=== PATIENT | male | born 1980 | race Caucasian/White ===

== ENCOUNTER 2017-03-26 08:29 | Inpatient (IN) | payer BC ==
[~2017-03-26] VITALS: Ht 188 cm; Wt 85.0 kg
[~2017-03-26 08:29] MED LIST: NORCO 5-325 TA1 EACH PO
--- NOTE | 2017-03-26 12:32 | NUR ---
PATIENT ARRIVES FROM ER TO ROOM 128 INTUBATED. PATIENT HAS A 7.5 MM ETT SECURED AT 22 AT THE LIP. PATIENT IS TACHY WITH HR 165-170. DR. KEYES CALLED TO COME EVAL PATIENT. PROPOFOL INFUSION AT 10 MCG/KG/MIN.
--- NOTE | 2017-03-26 18:19 | NUR ---
I RECEIVED A CALL TO COME FOR THIS PT AT ABOUT 1600. WHEN I ARRIVED THE NURSE GAVE ME A BRIEF ASSESSMENT OF WHAT WAS GOING ON. SHE SAID THE MOTHER HAD BEEN CONTACTED AND THEY WERE WAITING FOR HER TO ARRIVE. WHEN SHE ARRIVED, AFTER SHE TALKED TO PT AND NURSE AND , I OFFERED PRAYER. SHE REFUSED, SAYING SHE IS BUDDIST. DR ECHOLS WAS CALLED TO DO A PROCEDURE ON PT SO I TALKED WITH MOM WHILE THIS WAS BEING DONE. AFTER THE PROCEDURE, PT SEEMED MORE STABLE SO NURSE SAID I COULD LEAVE.
--- NOTE | 2017-03-26 19:15 | NUR ---
SEE MONITOR PRINT OUT SHEET FOR FREQUENT V.S.
--- NOTE | 2017-03-26 19:33 | NUR ---
PROGRESS NOTE FROM [id number] AT APPROX 1300, PT'S BLOOD PRESSURE STARTED DROPPING TO BELOW 100 SBP. PT'S FEVER WAS ALSO NOTED TO BE DROPPING. FEVER AT IT'S PEAK WAS 102.6 PER TEMP PROBE CRUZ. PT CONTINUED TO RECEIVE IV BOLUSES OF NORMAL SALINE. PATIENT ENDED UP RECEIVING 7 L NORMAL SALINE BOLUSES FROM THE TIME HE ARRIVED IN THE ED TO NOW, 1930. INITIAL SEDATION STARTED TO WEAR OFF, PATIENT STARTED TO AWAKEN MORE AND COUGH AND FIGHT THE VENTILATOR. PT'S RR HAS REMAINED VERY ELEVATED, WITH 35-40. SP02 DROPPED DOWN TO LOW THE LOW 70s% ON 100% FI02. PATIENT REMAINED ON LEVOPHED, PROPOFOL, AND IVF. PATIENT RECEIVED A LOADING DOSE OF MEROPENEM. LEVOPHED WAS TITRATED UP, PROPOFOL WAS TITRATED DOWN. PRECEDEX WAS TITRATED DOWN AND EVENTUALLY TURNED OFF. PT'S BLOOD PRESSURES CONTINUED TO DROP, WITH THE LOWEST BP BEING 72/48 (54) AND 69/55 (59) AT 1520. DOPAMINE WAS STARTED FOR A SHORT PERIOD OF TIME AND THEN TURNED OFF AT 1545 WHEN VASOPRESSIN WAS ADDED. PT HAS REMAINED ON VASOPRESSIN AT 0.3 UNITS/MIN. AT 1610, PT'S SP02 CONTINUED TO DROP IN THE 70-80s%, AND PATIENT WAS MANUALLY BAGGED FOR A APPROX 10-15 MINUTES. PATIENT WAS ALSO PROFUSELY SWEATING AT THIS TIME. DR. KEYES WAS ABLE TO CONTACT PATIENT'S MOTHER, ANTONIO, AROUND 1615. PT'S MOTHER ARRIVED AROUND 1645. PASTORAL CARE WAS ALSO CALLED AND ASKED TO ASSIST WITH THIS PATIENT'S FAMILY. AT 1650, DR. ECHOLS ARRIVED AND PREPPED PATIENT FOR A CENTRAL LINE. PT'S MOTHER SIGNED THE CONSENT FORM. A LEFT TRIPLE LUMEN IJ WAS ESTABLISHED AND A REPEAT CHEST XRAY WAS OBTAINED. PT ALSO HAS AN OG TUBE THAT WAS PLACED WITHOUT DIFFICULTY AROUND 1330. PT HAS HAD GREEN BILE LIKE FLUID BEING SUCTIONED FROM THIS TUBE. THUS FAR, PATIENT HAS ONLY HAD MINIMAL SECRETIONS, BUT WHAT SECRETIONS WE HAVE SEEN ARE PINK TINGED. AT THIS TIME, PATIENT HAS LEVOPHED INFUSING AT 25 MCG/MIN, PROPOFOL AT 40 MCG/KG/MIN, VASOPRESSIN AT 0.3 UNITS/HR, NORMAL SALINE AT 250 ML/HR, NS WITH 1 AMP OF SODIUM BICARB AT 125 ML/HR. PATIENT HAS FOUR PERIPHERAL IV SITES. BLOOD CULTURES WERE DRAWN IN ER. SPUTUM CULTURE TO BE OBTAINED. PATIENT HAS BEEN GIVEN PRN DOSES OF VERSED, 5 MG, TO HELP KEEP PATIENT CALM AND TOLERATE THE VENTILATOR. WRIST RESTAINTS ARE IN PLACE AND BEING MONITORED CLOSELY. URINE OUTPUT HAS BEEN MINIMAL. AT 1845, URINE CRUZ BAG WAS EMPTIED FOR 225 ML OF CONCENTRATED URINE. PT HAD 475 PREVIOUSLY EMPTIED OUT OF BAG AROUND 1400. PT HAS REMAINED IN A SINUS TACH WITH OCCASIONAL PVCs. REPEAT MAG LEVEL WAS 1.7. REPORT GIVEN TO DAVEY HUGGINS.
--- NOTE | 2017-03-26 20:26 | NUR ---
DOES NOT OPEN EYES TO VOICE BUT IS TACHYPNEAC AND WILL OCC COUGH AND RAISE ARMS A LITTLE. MOM HAS BEEN AT BEDSIDE IS NOW HOME TO CARE FOR SELF AND STATES SHE WILL BE BACK. LAB DRAWN. ABG'S DRAWN. WILL CONT TO MONITOR VS AND URINE OUTPUT.
--- NOTE | 2017-03-26 22:15 | NUR ---
Van ROSARIO SUPERVISOR LAMP SHADES ATTEMPTING TO INSERT ART LINE. PT WAS GIVEN MORPHINE 4MG IV FOR DISCOMFORT. VASOPRESSIN TITRATED TO 4MCG FOR HYPOTENSION. DR KEYES IN DEPT WHEN RECIEVED REPORT OF CRITICAL LOW CALCIUM AND ORDER RECIEVED.
--- NOTE | 2017-03-26 23:06 | NUR ---
ART LINE IN LT FEMORAL SITE. ABG WAS SENT. PT TILTED TO L SIDE.
--- NOTE | 2017-03-26 23:15 | NUR ---
DR KEYES NOTIFIED OF ABG'S AND LOW URINE OUTPUT. WILL GET CVP.
--- NOTE | 2017-03-27 00:01 | NUR ---
ATTEMPTED TO OBTAIN SPUTUM SMAPLE VIA ETT, UNABLE TO OBTAIN A SUFFICIANT AMOUNT OF SPUTUM TO SEND A SAMPLE, EVEN ATTEMPTED TO LAVAGE PT AND WAS UNABLE TO GET ANY SPUTUM UP, WILL ATTEMPT AGAIN AT A LATER TIME, PT MIGHT BENEFIT FROM A BRONCHOSCOPY IF UNABLE TO OBTAIN SPUTUM
--- NOTE | 2017-03-27 00:30 | NUR ---
IS LESS DIAPHORETIC THAN EARLIER. MOM CONT AT BEDSIDE.
--- NOTE | 2017-03-27 02:05 | NUR ---
GIVEN CHLORHEXADIN WIPE DOWN AND LINEN CHANGED. RR INC DURING THIS. MORE AWAKE AND DID TRY TO FOLLOW SOME COMMANDS. GIVEN 5MG VERSED FOR SEDATION AND INC RR, AND COMFORT. MOTHER OF PT TOLD US THAT PT HAD TOLD HER ABOUT BEING ON MEDICINE FOR AN STD BUT THAT HE HAD QUIT TAKING IT. SHE DOES NOT KNOW THE TYPE OF STD OR KIND OF MEDICATION. WILL INFORM DR IN AM.
--- NOTE | 2017-03-27 03:20 | NUR ---
GRDADUALLY TITRATING LEVOPHED AND VASOPRESSIN. DOWN.
--- NOTE | 2017-03-27 04:31 | NUR ---
PT BECAME AGITATED AFTER BEING TURNED, GIVEN 4MG MORPHINE AND PT DID CALM SOME, STILL TENSE, GIVEN 5MG VERSED IV. MORE RELAXED NOW.
--- NOTE | 2017-03-27 06:14 | NUR ---
LABS DRAWN PER ART LINE. PT REPOSITIONED AND MARYCARMEN WELL. CONT TO BE COOL AND CLAMMY FRANK EXTREMITIES.
--- NOTE | 2017-03-27 06:28 | OR ---
[facility] [address], [place] [address] Signed DATE OF OPERATION: 03/26/2017 SURGEON: Mauricio Castro M.D. PREOPERATIVE DIAGNOSES: 1. Sepsis. 2. Pneumonia. 3. Alcohol withdrawal. POSTOPERATIVE DIAGNOSES: 1. Sepsis. 2. Pneumonia. 3. Alcohol withdrawal. PROCEDURES: 1. Placement of left internal jugular triple-lumen catheter. 2. Physician-directed ultrasound. ESTIMATED BLOOD LOSS: Minimal. INDICATIONS: Jose is a 36-year-old gentleman who has been admitted to the internal medicine service to our emergency room. He was found to have what looks like left-sided pneumonia and alcohol withdrawal. He is clearly septic. He has excellent peripheral IV access, but he has been on pressors all day, and he is intubated. He is clearly in need of ongoing ICU care. Consequently, I was asked by the internal medicine service to come and place a triple-lumen catheter for sreekanth with respect to the above. Of course, he is sedated, but fortunately his mother was here, we had a discussion regarding triple-lumen running central venous catheters. She understands the nature of the catheter along with the risks, including but not limited to, bleeding, infection, scarring, change in contour of the skin, pneumothorax requiring chest tube placement, as well as catheter embolization requiring retrieval. She had expressed understanding and wished to proceed. DESCRIPTION OF PROCEDURE: Jose was kept supine in his ICU bed with adequate sedation with the help of Versed. His left neck and chest wall were prepped and draped in the usual sterile fashion. We injected local anesthetic in the left chest wall and underneath the left clavicle. I accessed the left subclavian vein with the first pass of the needle and the wire was inserted, but it was catching once it was entering the subclavian vein. We were not sure if it was catching on the internal jugular vein where it joins the subclavian vein. We withdrew the wire, turned the wire over, so a J hook was facing the opposite Electronically Signed By: MAURICIO CASTRO MD 03/27/17 0628 PATIENT NAME: JOSE GARZA OPERATIVE REPORT DATE OF : 76 PHYSICIAN: MAURICIO CASTRO MD REPORT #: [id number] REPORT IS CONFIDENTIAL AND NOT TO BE RELEASED WITHOUT AUTHORIZATION [facility] [address], [place] [address] Signed direction and refitted the wire and again it would not pass. Consequently, we took the wire and the needle out. We re-accessed the subclavian vein on 2 passes of the needle and again the wire would proceed to the length of the needle, but once again at the subclavian vein, it would not pass. Consequently, we abandoned the left subclavian approach. After this, we brought out our ultrasound and we put on the ultrasound cover sterilely and we injected some local anesthetic over his left carotid artery. We used the ultrasound and found the artery and the internal jugular vein next to it. We accessed the artery initially with a finder needle, so we held pressure for 5 minutes. After that, we then accessed the internal jugular vein with a finder needle. We then switched out to our larger needle and we were able to access the internal jugular vein without difficulty. On this occasion, the wire fed quite nicely down and then towards the superior vena cava. We then dilated the track without any resistance whatsoever. The triple-lumen catheter was inserted over the wire and again there was no resistance whatsoever to passage of the triple-lumen catheter. All 3 ports were able to draw and flush quite readily. We then sutured the catheter in place on the neck and then at 3 points on the catheter hub on the chest wall just over the clavicle. Dry plastic occlusive dressing was then applied. Both tolerated the procedure quite well. The chest x-ray was then taken and we can see it is in good position. There was no evidence of pneumothorax. We can see the increased markings in his left lung consistent with his pneumonia. Mauricio Castro M.D. / [id number] P P Electronically Signed By: MAURICIO CASTRO MD 03/27/17 0628 PATIENT NAME: JOSE GARZA OPERATIVE REPORT DATE OF : 76 PHYSICIAN: MAURICIO CASTRO MD REPORT #: [id number] REPORT IS CONFIDENTIAL AND NOT TO BE RELEASED WITHOUT AUTHORIZATION
--- NOTE | 2017-03-27 07:10 | EKG ---
[facility] [address] [facility] [place], [place] [address] Signed Sinus tachycardia Otherwise normal ECG No previous ECGs available Confirmed by POP KEYES MD ([id number]) on 03/27/2017 7:09:55 AM Electronically Signed By: POP KEYES MD 03/27/17 0710 PATIENT NAME: JOSE GAZRA Electrocardiogram DATE OF : 76 PHYSICIAN: POP KEYES MD REPORT #: [id number] REPORT IS CONFIDENTIAL AND NOT TO BE RELEASED WITHOUT AUTHORIZATION
--- NOTE | 2017-03-27 07:15 | NUR ---
bedside report recieved. REMAINS ON VENT. ART LINE TO L FEMEROL ART NO FUNCTIONAL. WILL TROUBLE SHOOT THIS LATER. DR. KEYES AWARE . LEVOPHED GTT REMAINS AT 2OMCG/MIN, VASOPRESSIN 0.3 MCG/MIN. SEE MONITOR PRINT OUT FOR FREQUENT V.S. CRUZ CATH/OG PATENT. FEET/HAND COOL TO TOUCH.
--- NOTE | 2017-03-27 07:22 | NUR ---
CHEST XRAY DONE. PT AGITATED AND GIVEN 5MG VERSED IV. ART WAVEFORM DAMPENED AFTERWARD, FLUSHES WELL. REPORT TO DAY SHIFT.
--- NOTE | 2017-03-27 10:40 | NUR ---
Gayle PABON HERE TO PLACE ART LINE
--- NOTE | 2017-03-27 10:59 | NUR ---
MED REC COMPLETE. PATIENT TAKES NO HOME MEDICATIONS
--- NOTE | 2017-03-27 11:05 | NUR ---
ART LINE PLACED TO LEFT RADIAL ART. GOOD WAVE FORM/GOOD BLOOD RETURN. NO CHANGE IN HAND TEMP. HANDS/FEET COLD TO TOUCH.
--- NOTE | 2017-03-27 11:10 | NUR ---
ART LINE TO LEFT FEMEROL ART DC'D.
--- NOTE | 2017-03-27 11:45 | NUR ---
ABG RESULTS PH-7.32, PCO2-35.7, PO2-107, HCO3-17.7. K+-3.3, AST-888, ALT-287. DR. KEYES UPDATED ON LABS.
--- NOTE | 2017-03-27 12:01 | NUR ---
LABS DRAWN VIA ART LINE PER ORDERS. SPONGE BATH/ORAL CARE GIVEN. IC CALM ON DIPRAVAN GTT AT 5OMCG/KG/MIN. VASOPRESSIN OFF AT 1125, BP-124/75 VIA ART LINE.
--- NOTE | 2017-03-27 12:28 | NUR ---
FIO2 DECREASED TO 50%. PO2 VIA ABG-107, PH-7.32. LEVOPHED GTT DECREASED TO 17.5 MCG/MIN. BP-120/80. HAS EYES OPEN AT TIMES.
--- NOTE | 2017-03-27 12:40 | NUR ---
REMAINS ON DIPRAVAN GTT AT 50MCG/MIN.
--- NOTE | 2017-03-27 13:43 | NUR ---
VISITED WITH JANE FERNANDEZ. PT SWEATING PROFUSLY, ON VENT. NO FAMILY PRESENT, HOWEVER HIS MOTHER DID STAY THE NIGHT. PRAYED FOR PT AND STAFF
--- NOTE | 2017-03-27 15:17 | NUR ---
DR. KEYES UPDATED ON PATIENT CONDITION. ORDERS RECIEVED TO REPEAT CALCIUM GLUCONATE.
--- NOTE | 2017-03-27 15:30 | NUR ---
CALM. NO MORPHINE HAS BEEN GIVEN SO FAR TODAY. HAS HAD VERSED X 3 TODAY.
--- NOTE | 2017-03-27 16:07 | NUR ---
ASSESSMENT DONE. FAMILY/FRIEND AT BEDSIDE. REMAINS ON LEVOPHED GTT AT 17.5 MG/MIN. DIPRAVAN AT 50 MCG/KG/MIN. IVF AT 125 ML/HR. K RIDER 40 MEQ HAS INFUSED. CALCIUM GLUCATATE INFUSING. CRUZ CATH IS PATENT. MEDICATED WITH VERSED 4 MG IV IS RESTLESS. CRUZ CATH PATENT.
--- NOTE | 2017-03-27 17:00 | NUR ---
morphine 4 MG IV GIVEN FOR COMFORT.
--- NOTE | 2017-03-27 17:50 | NUR ---
DR. KEYES HERE TO SEE PATIENT. VENT SETTINGS, TV-500, FIO2-50, CMV-20,PEEP-8, PIP-20.
--- NOTE | 2017-03-27 17:54 | NUR ---
TOTAL IVF [id number]
--- NOTE | 2017-03-27 19:02 | NUR ---
VERSED 4 MG IV GIVEN. REPORT TO NEXT SHIFT.
--- NOTE | 2017-03-27 20:10 | NUR ---
REPORT RECIEVED FROM DAY SHIFT. PT IS EASILY AROUSABLE, WILL PULL AT RESTRAINTS AND DID RESIST ORAL CARE. GIVEN 4MG MOMRPHINE IV FOR COMFORT. IS DIAPHORETIC BUT COLOR IS SL IMPROVED FROM LAST NIGHT.
--- NOTE | 2017-03-27 21:30 | NUR ---
REPOSITIONED. PT COUGHING AND RR INC. GIVEN 4MG VERSED FOR RELAXATION.
--- NOTE | 2017-03-27 23:15 | NUR ---
RT IN TO DO ORAL CARE. SUCTIONED FOR LARGE AMT PINK SPUTUM. PT DID GRASP HAND ON REQUEST. CONT TO COUGH AND APPEAR UNCOMFORTABLE, GIVEN 4MG MORPHINE. IS LESS DIAPHORETIC. EXTREMETIES MUCH WARMER THOUGH R FOOT IS COOLER THAN L AND PULSE IS WEAKER.
--- NOTE | 2017-03-28 00:56 | NUR ---
REPOSITIONED. MARYCARMEN WELL. RESTFUL.
--- NOTE | 2017-03-28 01:17 | NUR ---
PT UP TO COMMODE AND BATHROOM THREE DIFFERENT TIMES IN THE LAST 30 MIN. PT ABLE TO STATE "CAN I PLEASE USE THE RESTROOM" AND "CAN I HAVE SOME MORE BLANKETS?". PT HAVING DIFFICULTY GETTING COMFORTABLE IN BED. DIRECTOR OF INCOME TAX TAKEN OFF FOR PT COMFORT, WILL SPOT CHECK, VITALS WNL. PT TEARFUL AT TIMES, AND STATES "I HATE THIS".
--- NOTE | 2017-03-28 02:20 | NUR ---
REPOSITIONED TO SIDE. MORE AWAKE AND TRYING TO MOVE ETT AROUND IN MOUTH IF FINDS IT UNCOMFORTABLE. GIVEN 4MG VERSED IV. CONT TO TITRATE LEVOPHED, IS NOW 13MCG/MIN.
--- NOTE | 2017-03-28 02:49 | NUR ---
CONT TO BE TENSE. GIVEN 4MG MORPHINE IV.
--- NOTE | 2017-03-28 04:07 | NUR ---
AWAKENED WHEN ORAL CARE DONE PER RT. PT ATFIRST CALMED WITH NURSE HOLDING HAND, BUT BECAME MORE RESTLESS. GIVEN 4MG VERSED IV. REPOSITIONED UP IN BED AND TO BACK. PT NOW MORE RESTFUL. CONT TO TITRATE LEVOPHED DOWN, IS NOW AT 10MCG/KG.
--- NOTE | 2017-03-28 06:07 | NUR ---
ABG'S AND LABS DRAWN PER ART LINE. PT RESTFUL AT THIS TIME. LEVOPHED DEC TO 9MCG/KG. UPDATE GIVEN TO PT'S MOTHER PER PHONE.
--- NOTE | 2017-03-28 06:30 | NUR ---
VERSED 4MG IV GIVEN PRIOR TO CXR BEING DONE. PT MARYCARMEN WELL.
--- NOTE | 2017-03-28 07:35 | NUR ---
BEDSIDE REPORT RECEIVED FROM JANE SMART. PATIENT RESTING AT THIS TIME ON VENTILATOR AND BREATHING ALONG WITH VENTILATOR. PT IS ON 50 MCG/KG/MIN OF PROPOFOL, LEVOPHED AT 9 MCG/MIN, MEROPENEM AT 33 ML/HR, AND NORMAL SALINE AT 156 ML/HR, FOR A TOTAL OF 250 ML/HR OF IVF PER DR. KEYES ORDER. PATIENT HAS OG TUBE THAT IS TO LOW INTERMITTENT SUCTION BUT NOT DRAINING MUCH AT THIS TIME. CENTRAL LINE IN LEFT IJ TRIPLE LUMEN BEING USED. ART LINE IN LEFT WRIST. TEMP PROBE CRUZ DRAINING YELLOW URINE IN QUANTITY SUFFICIENT AMOUNTS. RASS GOAL IS -2 AND PATIENT IS CURRENTLY AT A -2 RASS. SCDS AND HEEL PROTECTORS ON. PT REPOSITIONED TO LEFT SIDE. PT ALSO DEEP SUCTIONED WITH RAJPUT COLORED SECRETIONS EVIDENT IN TUBE. CONTINUE TO MONITOR. LOVENOX BEING D/C DUE TO LOW PLATELETS.
--- NOTE | 2017-03-28 08:04 | NUR ---
PROPOFOL TURNED UP TO 55 MCG/MIN AT THIS TIME. PT ALSO GIVEN 4 MG IV VERSED. PT SITTING UP IN BED AND COUGHING AGAINST TUBE. RASS GOAL IS -2 AND PT CURRENTLY AT A +1. DR. KEYES AT BEDSIDE EVALUATING PATIENT. FULL ASSESSMENT COMPLETE.
--- NOTE | 2017-03-28 08:10 | NUR ---
PATIENT AWAKE WITH EYES OPEN. PT RASS IS AT +1. PT GIVEN 4 MG IV VERSED FOR SEDATION.
--- NOTE | 2017-03-28 10:00 | NUR ---
PATIENT TURNED TO RIGHT SIDE. RT IN ROOM AND RE-ADJUSTING PT'S ETT AND ETT LOPEZ. I/O COMPLETE AT THIS TIME. WRIST RESTRAINTS CHECKED AND CSM INTACT. ART LINE CONTINUES TO SHOW GOOD WAVEFORM. LEVOPHED AT 9 MCG/MIN. PROPOFOL CONTINUES AT 55 MCG/KG/MIN.
--- NOTE | 2017-03-28 10:15 | NUR ---
PATIENT GIVEN 4 MG IV MORPHINE FOR PAIN. PT AWAKE, RESPONDS TO QUESTIONS BY CLOSING EYES TIGHT AND BY RAISING EYE BROWS. PT ACKNOWLEDGES THAT HIS IS IN PAIN. PT ALSO FOLLOWS COMMANDS OF SQUEEZING MY HAND WHEN ASKED. PT NOTED TO BE MOVING ALL FOUR EXTREMTIES. CONTINUE TO MONITOR.
--- NOTE | 2017-03-28 11:00 | NUR ---
PATIENT RESTLESS AND GIVEN 4 MG IV VERSED FOR A RASS OF 0 - +1. PT COUGHING AND NOT TOLERATING VENTILATOR WELL.
--- NOTE | 2017-03-28 11:42 | NUR ---
LEVOPHED TURNED DOWN TO 8 MCG/MIN. PATIENT'S MAP HAS CONSISTENTLY BEEN >70. LAST NIBP WAS 109/78 (85). CONTINUE TO MONITOR.
--- NOTE | 2017-03-28 12:32 | NUR ---
PATIENT GIVEN 4 MG IV MORPHINE FOR GENERALIZED DISCOMFORT. PATIENT SHOWING SIGNS OF BEING UNCOMFORTABLE. PT REPOSITIONED TO HIS BACK WITH PILLOWS UNDERNEATH HIS HIPS. PT'S BED BATH AND LINEN CHANGE TO BE DONE AROUND 1400. CONTINUE TO MONITOR.
--- NOTE | 2017-03-28 15:37 | NUR ---
BEDBATH GIVEN TO PATIENT AT 1430. PT TOLERATED WELL. PT GIVEN 4 MG IV VERSED PRIOR TO CHANGING HIS LINEN. AROUND 1500, PATIENT GIVEN 4 MG IV MORPHINE FOR GENERALIZED DISCOMFORT AFTER BEING TURNED AND DEEP SUCTIONED. PT'S MOTHER NOW AT BEDSIDE AND DR. KEYES IN ROOM SEEING PATIENT. PT'S BOSS, OUSMANE, ALSO HERE TO SEE PATIENT. HEART RATE CURRENTLY 98, SP02 99% ON 50% FI02. PT IS TOLERATING VENTILATOR WELL. URINE OUTPUT HAS REMAINED GOOD. CONTINUE TO MONITOR.
--- NOTE | 2017-03-28 17:00 | NUR ---
RT in room, removes bite block. Fi02 decreased to 35%. Patient resting quietly, RT does oral care and suctions patient. Patient tolerates well. O2 says 93% at this time. After removing bite block RT notes a small ulceration to patient lower lip. Area is the size of a frozen pea.
--- NOTE | 2017-03-28 17:20 | NUR ---
PATIENT GIVEN CYMBALTA THROUGH THE OG TUBE AND TUBE CLAMPED FOR NOW. RT DOING PULMONARY TREATMENT WITH DEEP SUCTIONING. PT'S SKIN FRAGILE ON UPPER AND LOWER LIPS - BACITRACIN APPLIED TO SORE AREAS. LEVOPHED TURNED DOWN TO 7 MCG/MIN. LAST NIBP 126/91 (99). PT GIVEN 4 MG IV VERSED FOR AGITATION AND A RASS OF +1. CONTINUE TO MONITOR.
--- NOTE | 2017-03-28 18:17 | NUR ---
LEVOPHED TURNED DOWN TO 6 MCG/MIN. LAST BP 128/92 (100) NIBP, ART LINE 110/70 (84). PT TURNED TO SUPINE POSITION AT THIS TIME. I/O COMPLETE. RESTRAINTS IN PLACE.
--- NOTE | 2017-03-28 19:05 | NUR ---
RT IN ROOM AND RE-SECURING ETT LOPEZ. PT AWAKE AND COUGHING AND APPEARS AGITATED. PT NODS HEAD YES WHEN ASKED IF HE IS IN PAIN. PT GIVEN 4 MG IV MORPHINE AT THIS TIME. LEVOPHED IS AT 5 MCG/MIN. PROPOFOL IS GOING AT 50 MCG/KG/MIN. REPORT TO DEEP SEA DIVER RNs AT BEDSIDE.
--- NOTE | 2017-03-28 20:05 | NUR ---
PROPOFOL DRIP TURNED UP TO 60 MCG/KG/MIN PER PT AGITATION.
--- NOTE | 2017-03-28 20:44 | NUR ---
PT REPOSITIONED TO LEFT SIDE WITH PILLOW FOR SUPPORT UNDER RT HIP, BOOSTED PT UP IN BED, REPOSITIONED HEAD AND TURNED PILLOW. RESTRAINTS CHECKED FOR PT COMFORT AND SAFETY. PERIFFERAL IV SITES INTACT, NO REDNESS OR SWELLING NOTED, FLUSH EASILY. CENTRAL LINE INTACT, FLUIDS INFUSING EASILY, NO DRAINAGE NOTED. PT VITALS WNL. ORAL CARE AND SUCTIONING DONE BY RT. PT RASS SCORE AT -2. SCD'S AND HEEL PROTECTORS IN PLACE.
--- NOTE | 2017-03-28 21:14 | NUR ---
PROPOFOL DRIP TURNED DOWN TO 55 MCG/KG/MIN.
--- NOTE | 2017-03-28 21:55 | NUR ---
PT GIVEN 4 MG IV MORPINE FOR COMFORT, REPOSITIONED TO BACK, RESTRAINTS CHECKED FOR PT COMFORT AND SAFETY.
--- NOTE | 2017-03-28 22:00 | NUR ---
TITRATED LEVOFED DRIP TO 2 MCG/MIN.
--- NOTE | 2017-03-28 22:15 | NUR ---
MEDICATION CRUSHED AND GIVEN PER TUBE, FLUSHED WITH 100 ML TAP H20, SUCTION TURNED OFF AT THIS TIME.
--- NOTE | 2017-03-28 23:20 | NUR ---
NG TUBE SUCTION TURNED BACK ON.
--- NOTE | 2017-03-28 23:28 | NUR ---
BP CUFF REPLACED ON RT ARM, BANDAGE AND BACITRACIN OINTMENT PLACED ON ABRASION IN RT AC. RESTRAINTS CHECKED FOR PT COMFORT AND SAFETY. NO GRIMACE NOTED, PT HANDS AND ARMS RELAXED.
--- NOTE | 2017-03-29 00:05 | NUR ---
TURNED LEVOFED DRIP OFF.
--- NOTE | 2017-03-29 00:45 | NUR ---
PT REPOSITIONED TO RT SIDE WITH SUPPORT OF PILLOW UNDER LEFT HIP, REPOSITIONED PT HEAD AND TURNED PILLOW. CRUZ CATH CARE DONE, SIGNIFICANT SCROTAL EDEMA NOTED, TENTED SCROTUM UP WITH PILLOW CASE FOR RELIEF. DC'D PERIFERAL IV SITE IN LEFT WRIST DUE TO REDNESS NOTED, TIP OF CATH INTACT, NO SWELLING NOTED. RESTRAINTS CHECKED FOR PT SAFETY AND COMFORT.
--- NOTE | 2017-03-29 04:30 | NUR ---
PT REPOSITIONED TO LEFT SIDE, WITH SUPPORT OF PILLOW UNDER RT HIP. RESTRAINTS CHECKED FOR PT COMFORT AND SAFETY. IV SITES INTACT, FLUSH EASILY, NO REDNESS OR SWELLING NOTED. CENTRAL LINE INTACT, BROWN AND WHITE PORT CONTINUIOUS USE, BLUE PORT HEP LOCKED, NO SWELLING OR DRAINAGE NOTED.
--- NOTE | 2017-03-29 06:09 | NUR ---
PT GIVEN 4 MG IV MORPHINE FOR AGITATION. REPOSITIONED PT TO BACK. RESTRAINTS ASSESSED FOR PT SAFETY AND COMFORT.
--- NOTE | 2017-03-29 06:30 | NUR ---
PT GIVEN 4 MG VERSAID FOR AGITATION.
--- NOTE | 2017-03-29 10:08 | NUR ---
ASSESSMENT COMPLETED AT 0800. PT RESTING ON VENT WITH HOB ELEVATED. R.T. IN AND ORAL CARE COMPLETED, ABG DRAWN FROM ART LINE PER RN AND SENT TO LAB. DR. KEYES IN TO ASSESS PT, NO WEANING PARAMETERS OR EXTUBATION ORDERED FOR TODAY. IVF DECREASED SO THAT THE TOTAL RUNNING BETWEEN 130-150 MLS/HR, PER DR. KEYES. PT GIVEN MORPHINE 2MG AND VERSED 4MG IV D/T MOVING ARMS AND REACHING FOR ETT. PT RESTING WITH EYES CLOSED AFTER MEDS GIVEN. SPONGE BATH GIVEN AND LINEN CHANGED WITH 3 PERSON ASSIST. PT HAD SMALL BROWN BM, SKIN INTACT. R.T. HERE AND NEW TUBING CHANGED FROM EET TO VENT AND SECURED WELL WITH ISABELLA ETT FASTENER AND TUBE CHANGED TO MID/RIGHT OF MOUTH.
--- NOTE | 2017-03-29 11:12 | NUR ---
VENT ALARMING "FI02 HIGH". RT NOTIFIED AND HERE TO CHECK VENT. SATS 94%.
--- NOTE | 2017-03-29 11:34 | NUR ---
RT CHANGED VENT OUT FROM THE DRAGER TO THE ESPRIT WITH SAME VENT SETTINGS: FI02 35%, TV 500, PEEP 8, PS 10.
--- NOTE | 2017-03-29 12:09 | NUR ---
DR. KEYES NOTIFIED OF DECREASE IN URINE OUTPUT. NO NEW ORDERS AT THIS TIME BUT WILL CONTINUE TO MONITOR.
--- NOTE | 2017-03-29 12:25 | NUR ---
ASSESSMENT COMPLETED, MOTHER IN ROOM AND WAS UPDATED ON PLAN OF CARE. MOTHER IS REQUESTING TO VISIT WITH DR. KEYES AT HER CONVIENCE. DR. KEYES NOTIFIED.
--- NOTE | 2017-03-29 12:30 | NUR ---
PT'S MOTHER STOPPED IN OFFICE WHEN SHE NOTICED CHAPLAIN AMY Calderon IN. SHE REQUESTED HE COME DOWN AT HIS CONVIENENCE. HE WAS CALLED IN WHEN PT WAS BROUGHT TO HOSPITAL. MOTHER PROFESSES TO BE [employer], SEEMS COMFORTABLE WITH AMY Calderon. WILL CONTINUE TO FOLLOW
--- NOTE | 2017-03-29 13:08 | NUR ---
I WAS IN THE OFFICE AND THE MOTHER OF PT SAW ME AND ASKED TO SPEAK WITH ME WHEN I HAD TIME. I WENT TO VISIT WITH HER AND SHE TALKED ABOUT PT AND ASKED ABOUT TRYING TO MAKE A CONNECTION WITH HIM WHEN HE IS AWAKE SO THAT I CAN POSSIBLY HELP HIM IN RECOVERY OF ADDICTION. I TOLD HER I WOULD TRY, BUT IT IS DEPENDANT ON HOW RECEPTIVE HE IS. SHE TALKED I UNDERSTOOD HER DESCRIBE SOMEONE WITH NO HOPE, AND I TOLD HER I WOULD OFFER THE HOPE I HAVE IN LIFE AND MAYBE IT WOULD BE ENOUGH TO GET HIM STARTED IN RECOVERY. I WILL TRUST GOD TO OPEN THAT DOOR.
--- NOTE | 2017-03-29 15:14 | NUR ---
I/O'S COMPLETED AT 1400, URINE OUTPUT REMAINS LOW. DR. KEYES NOTIFIED. MOTHER OF PT REMAINS IN ROOM AND DR. KEYES IN TO TALK WITH HER. ORDERS RECEIVED FOR LASIX 20 MG IV FOR DECREASED URINE OUTPUT.
--- NOTE | 2017-03-29 16:23 | NUR ---
25 MINUTES AFTER LASIX GIVEN PT IS RESTLESS, NO URINE IN CATHETER BAG. VERSED 2MG GIVEN IV, UNABLE TO FLUSH CRUZ CATH. URINE LEAKING FROM AROUND CRUZ INSERTION SITE. CRUZ DC'D AND REPLACED. CRUZ DRAINING CLEAR LIGHT YELLOW URINE. 1250 ML EMPTIED FROM CATHETER BAG AND APPROX 300 MLS LEAKED FROM AROUND CATHETER TUBE. VERSED 2MG GIVEN IV FOR A TOTAL OF 4MG. SPONGE BATH GIVEN AND LINEN CHANGED. PT REPOSITIONED IN BED AND TURNED TO LEFT SIDE. RESTING WITH EYES CLOSED.
--- NOTE | 2017-03-29 17:45 | NUR ---
ASSESSMENT COMPLETED. R.T. HERE TO SUCTION PT AND CHECK VENT. PT APPEARS TO BE MORE COMFORTABLE. HOB ELEVATED 35 DEGREES. CRUZ CATH DRAINING CLEAR YELLOW URINE.
--- NOTE | 2017-03-29 17:47 | NUR ---
Pt had alot of secretions , check eet placemnt 22 at teeth , good bilateral bs , rn at bedside oral secretion suctioned moved to tube to the middle of the mouth , check cuff pressure 28-30 , patient was alittle agitaed however rn gave meds and he is settled back down .
--- NOTE | 2017-03-29 20:00 | NUR ---
RECEIVED CARE OF PATIENT. PATIENT LYING QUIETLY IN BED; INTUBATED ON THE VENTILATOR. PATIENT RESPONDS TO VOICE, AND NODS HEAD YES/NO TO QUESTIONS. LUNGS CLEAR. CENTRAL LINE L JUGLAR; IV INFUSING WITHOUT PROBLEMS. CVP LINE IN PLACE WITH GOOD WAVEFORM; CVP 8.
--- NOTE | 2017-03-29 22:00 | NUR ---
PATIENT [id number] TO HAVE A LARGE AMOUNT OF SECRETIONS AND REQUIRES FREQUENT SUCTIONING; BOTH ENDOTRACHEAL AND ORAL. LUNGS COARSE IN MID TO LOWER MENG. HEART RATE REMAINS IN THE LOW 100'S. URINE OUTPUT REMAINS ADEQUATE.
--- NOTE | 2017-03-30 00:05 | NUR ---
PATIENT BECOMES VERY RESTLESS AT TIMES. CONTINUES TO NEED FREQ SUCTIONING. PATIENT NODS HEAD TO QUESTIONS; WHEN ASKED IF HAVING PAIN PATIENT NODS HEAD 'YES'. NO CHANGES IN ASSESSMENT AT THIS TIME.
--- NOTE | 2017-03-30 01:41 | NUR ---
SPOKE WITH MD. UPDATED THAT PT IS REQUIRING 55MCG/KG/MIN OF PROPOFOL AT START OF SHIFT. PT IS NOW AT 60 MCG/KG/MIN. MD IS OKAY WITH INCREASING NEEDED TO KEEP RASS SCORE -2 AND STAYING WITHING MEDICATION PARAMETERS.
--- NOTE | 2017-03-30 07:41 | NUR ---
RECEIVED REPORT FROM HEAD OF QUALITY. PT RESTLESS AND URINE OUTPUT DECREASED, HEAD OF QUALITY FLUSHED CRUZ BUT WITHOUT SUCCESS. CRUZ CHANGED AND LARGE AMOUNT OF SEDIMENT NOTIED AROUND TIP OF CATHETER. CRUZ NOW DRAINING PINK/YELLOW URINE WITH SEDIMENT. PT MEDICATED WITH VERSED 4MG IV FOR RESTLESSNESS. PT RESTING WITH HOB ELEVATED. R.T. HERE TO CHECK VENT SETTINGS, ABG DRAWN FROM ART LINE BY RN AND RT SENT TO LAB.
--- NOTE | 2017-03-30 11:49 | NUR ---
A.M. ASSESSMENT COMPLETED AT 0900. CRUZ DRAINING CLEAR YELLOW URINE. DR. KEYES IN TO ASSESS PT, ORDERS RECEIVED TO FLUSH CRUZ CATHETER FREQUENTLY TO KEEP CLEAR OF SEDIMENT. UA SENT TO LAB. MEDICATED PT NEEDED TO PROTECT ETT AND KEEP PT SAFE. VERSED GTT STARTED AT 3 MG/HR - MAY TITRATE. BED BATH GIVEN AND PT REPOSTIONED IN BED WITH 4 PERSON ASSIST. PT SUCTIONED NEEDED D/T LARGE AMOUNT OF ORAL SECREATIONS. SALINE LOCK X2 DC'D IN RIGHT HAND & RIGHT FOREARM WITH CATH INTACT - PER ROUTINE PROTOCOL. TRIPLE LUMEN CENTRAL LINE INFUSING WITHOUT PROBLEMS.
--- NOTE | 2017-03-30 12:12 | NUR ---
NOON ASSESSMENT COMPLETED. PT RESTING WITH HOB ELEVATED APPROX 38 DEGREES, OG TUBE FEEDING RUNNING AT 15 MLS/HR. SPONGE BATH AND LININ CHANGE COMPLETED. PT ON VERSED GTT @ 4MG/HR, PROPOFOL GTT AT 60 MCG/KG/HR. PT SUCTIONED FREQUENTLY.
--- NOTE | 2017-03-30 13:36 | NUR ---
PT STILL ON VENT. NO FAMILY PRESENT. GOD BLESS HIM
--- NOTE | 2017-03-30 13:58 | NUR ---
BLOOD PRESSURE INCREASING AND DR. KEYES NOTIFIED. LASIX 20 MG IV GIVEN PER ORDER. I/O'S COMPLETED. URINE OUTPUT INCREASING WITH LASIX.
--- NOTE | 2017-03-30 16:18 | NUR ---
DR. WAGNER IN TO ASSESS PT. PT AWAKE AND COUGHING, SUCTIONED PT. SATS 89-90%. PT MORE AWAKE AND MOVING IN BED, TRYING TO TALK AND MOVE LEGS OFF BED. PROPOFOL INCREASED TO 70 MCG/KG/MIN AND VERSED INCREASED TO 6 MG/HR.
--- NOTE | 2017-03-30 17:34 | NUR ---
ART LINE DC'D PER VERBAL ORDER. CATHETER TIP INTACT.
--- NOTE | 2017-03-30 17:56 | NUR ---
LAB HERE FOR RENAL FUNCTION PANEL. PT RESTING ON RIGHT SIDE WITH PILLOW TO BACK.
--- NOTE | 2017-03-30 21:00 | NUR ---
Patient lying quietly in bed; intubated on ventilator. Patient does not open eyes to voice at this time. Patient coughs frequently, small amount secretions, much less than last night. urine output good.
--- NOTE | 2017-03-31 00:05 | NUR ---
Patient continues to lie quietly in bed; occasionally appears a little restless when coughing, but calms down after suctioning and with reassurance. lungs clear, diminished in bases. O2 sats remain 92-94%.
--- NOTE | 2017-03-31 01:50 | NUR ---
PATIENT RESTLESS WITH RASS +1, PROPOFOL INCREASED FROM 65MCG TO 70MCG
--- NOTE | 2017-03-31 03:00 | NUR ---
patient very restless; trying to sit up in bed and pulling at restraints. patient biting hard on ETT. patient told to stop biting on tube and patient looked nurse directly in the eyes and shook head 'no'. patient continues with O2 sats 92-93% on 45% FIO2
--- NOTE | 2017-03-31 06:04 | NUR ---
Patient has continued to be restless on and off throughout shift. temperature has risen since 0400 to 101.7; medicated per orders. lungs remain clear, slightly diminished in the bases. secretions continue to be less than previous days. urine output has increased significantly; patient appears to be diuresing (385 mL between 0500 amd 0600)
--- NOTE | 2017-03-31 12:26 | NUR ---
ASSESSMENT COMPLETED THIS A.M. PT RESTING WITH HOB ELEVATED. URINE OUTPUT IMPROVED. DR. WAGNER IN TO ASSESS PT AND NEW ORDERS RECEIVED. PT RECEIVED LEVAQUIN 750 MG IV AND VANCOMYCIN LOADING DOSE 2000 MG IV. SPONGE BATH GIVEN AND LINEN CHANGED WITH 2 PERSON ASSIST. LIFT SHEET PLACED UNDER PATIENT FOR EASE OF MOVEMENT. PT REMAINS ON SEDATION WHILE ON VENT. PT TRANSFERRED TO CT DEPARTMENT FOR CHEST CT AT 1100 VIA BED WITH RN AND RT. 22G SL PLACED BY RN WHILE IN CT DEPARTMENT FOR CONTRAST INJECTION. RETURNED TO ROOM 128 VIA BED AT [address] COMPLETED.
--- NOTE | 2017-03-31 12:38 | NUR ---
NOON ASSESSMENT COMPLETED. PT RECEIVING MAG RIDERS AND POTASSIUM RIDERS PER DR. BAINS. PT HAS GOOD URINE OUTPUT. TEMP NOW 99.9 AXILLARY.
--- NOTE | 2017-03-31 15:04 | NUR ---
ORAL CARE COMPLETED. RT HERE TO CHECK VENT AND SUCTION PT. I/O'S COMPLETED.
--- NOTE | 2017-03-31 15:39 | NUR ---
ADJUSTMENTS TO VENT - FI02 50% AND PEEP 14. PER DR. WAGNER AND RT.
--- NOTE | 2017-03-31 18:11 | NUR ---
PT RESTING WITH HOB ELEVATED. ABG RESULTS WERE VIEWED BY RT AND DR. WAGNER. VENT CHANGES TV 500, FI02 60% RATE 16, PEEP 14, PS 10.
--- NOTE | 2017-03-31 19:36 | NUR ---
FULL BEDSIDE REPORT GIVEN BY JAYDEN LARA, PT ON PROPOFOL AT 70 MCG/KG/MIN.
--- NOTE | 2017-03-31 20:30 | NUR ---
PT HAD 6 BEATS OF V-TAC, IS AWARE. ADDITIONAL LABS ORDERED.
--- NOTE | 2017-03-31 21:00 | NUR ---
PT REPOSITIONED TO RT SIDE FROM BACK WITH SUPPORT OF PILLOWS, RESTRAINTS CHECKED FOR PT SAFETY AND COMFORT.
--- NOTE | 2017-03-31 22:55 | NUR ---
BLADDER SCANED PT FOR 60 ML, CALLED TO UPDATE HIM ON LOW URINE OUTPUT, NO FURTHER ORDERS EXCEPT TO CONTINUE TO MONITOR.
--- NOTE | 2017-03-31 23:00 | NUR ---
PT REPOSITIONED TO BACK, RESTRAINTS CHECKED FOR PT SAFETY AND COMFORT.
--- NOTE | 2017-04-01 | NUR ---
IV SITE INTACT, NO REDNESS OR SWELLING NOTED, FLUSHES EASILY. CENTRAL LINE SITE INTACT, NO REDNESS OR SWELLING NOTED, FLUIDS INFUSING EASILY. RESTRAINTS CHANGED AND SKIN CARE DONE FOR WRISTS. CHECKED RESTRAINTS FOR PT SAFETY AND COMFORT.
--- NOTE | 2017-04-01 01:00 | NUR ---
PT REPOSITIONED TO LEFT SIDE WITH SUPPORT OF PILLOWS, RESTRAINTS CHECKED FOR PT SAFETY AND COMFORT.
--- NOTE | 2017-04-01 03:00 | NUR ---
PT REPOSITIONED TO BACK, RESTRAINTS CHECKED FOR SAFETY AND COMFORT.
--- NOTE | 2017-04-01 04:35 | NUR ---
IV SITE INTACT, NO REDNESS OR SWELLING, FLUIDS INFUSING EASILY. CENTRAL LINE SITE INTACT, NO SWELLING OR BRUSING NOTED, FLUIDS INFUSING EASILY, ALL LUMINS IN USE. RESTRAINTS CHECKED FOR PT SAFETY AND COMFORT. URINE OUTPUT IS LESS THAN QS, IS AWARE.
--- NOTE | 2017-04-01 04:40 | NUR ---
650 MG TYLENOL GIVEN PER TUBE FOR TEMP OF 101.2. FLUSHED WITH 100 ML TAP WATER.
--- NOTE | 2017-04-01 05:00 | NUR ---
PT REPOSITIONED TO RT SIDE FOR COMFORT WITH SUPPORT OF PILLOWS. RESTRAINTS CHECKED FOR PT SAFETY AND COMFORT.
--- NOTE | 2017-04-01 06:20 | NUR ---
BLOOD DRAWN FROM BLUE PORT ON CENTRAL LINE FOR AM LABS, CENTRAL LINE WNL AT THIS TIME.
--- NOTE | 2017-04-01 06:57 | NUR ---
PT STILL ON PROPOFOL 70MCG/KG/MIN.
--- NOTE | 2017-04-01 08:22 | NUR ---
PT REMAINS ON VENT, HOB ELEVATED 45 DEGREES, ASSESSMENT COMPLETED. RT HERE AND VENT CHECK AND ORAL CARE COMPLETED. PT WITH WHITE ROUND LESIONS NOTED.
--- NOTE | 2017-04-01 09:17 | NUR ---
TALKED WITH DR. WAGNER CONCERNING URINE OUTPUT. ORDERS RECEIVED AND IVF INCREASED TO 125/HR. AM MEDS GIVEN.
--- NOTE | 2017-04-01 10:01 | NUR ---
DR. WAGNER IN TO ASSESS PT. ORDERS RECEIVED, 500 ML LR BOLUS STARTED
--- NOTE | 2017-04-01 10:26 | NUR ---
DURING BEDBATH BEFORE CATH CARE COMPLETED DISCHARGE NOTED FROM URETH[facility]. DR. WAGNER NOTIFIED AND ORDERS RECEIVED. SWAB FOR CHLAMYDIA/GONORRHEA SENT TO LAB. RT HERE AND TV ON VENT CHANGED FROM 500 TO 480.
--- NOTE | 2017-04-01 11:30 | NUR ---
AFTER BEDBATH PT TURNED TO RIGHT SIDE HAD MED LIQ GREEN BM. PT CLEANED AND REMAINS ON RIGHT SIDE WITH PILLOWS TO BACK AND BETWEEN KNEES. RT HERE AND SUCTIONED PT.
--- NOTE | 2017-04-01 12:21 | NUR ---
NOON ASSESSMENT COMPLETED, URINE OUTPUT REPORTED TO DR. WAGNER. WILL CONTINUE TO WATCH URINE OUTPUT CLOSELY.
--- NOTE | 2017-04-01 14:26 | NUR ---
I/O'S COMPLETED, DR. WAGNER NOTIFIED OF HOURLY URINE OUTPUT. IVF WILL REMAIN AT 125/HR. PT RESTING ON BACK WITH HOB ELEVATED, SCD ON BILAT.
--- NOTE | 2017-04-01 19:22 | NUR ---
1600 ASSESSMENT COMPLETED WITH NO CHANGE. PT CONTINUES WITH GOOD URINE OUTPUT. RT HERE AND ABG DRAWN PER ORDER. PT REPOSIONED IN BED ON BACK AND WITH HOB ELEVATED. DR. WAGNER IN TO CHECK PT. NO NEW ORDERS AT THIS TIME.
--- NOTE | 2017-04-01 19:30 | NUR ---
FULL BEDSIDE REPORT GIVEN BY JAYDEN LARA, ALL QUESTIONS ANSWERED. PT APPEARS COMFORTABLE AT THIS TIME, RESTRAINTS ASSESSED FOR PT COMFORT AND SAFETY.
--- NOTE | 2017-04-01 19:45 | NUR ---
RT IN PT ROOM DOING ORAL CARE. PT MARYCARMEN WELL.
--- NOTE | 2017-04-01 20:30 | NUR ---
IV DC'D DUE TO IT BEING PULLED. TIP OF CATH INTACT, NO REDNESS OR SWELLING NOTED AT SITE.
--- NOTE | 2017-04-01 21:19 | NUR ---
URINE SAMPLE SENT TO LAB.
--- NOTE | 2017-04-01 21:22 | NUR ---
CALLED TO UPDATE ON PT URINE OUTPUT FOR THE LAST HOUR OF 190 ML. ORDER GIVEN TO DECREASE IV FLUIDS TO 75 ML/HR. CONTINUE WITH HOURLY URINE OUTPUT MONITORING.
--- NOTE | 2017-04-01 22:40 | NUR ---
18 G IV STARTED IN PT LEFT AC FOR ADMINISTRATION OF ABX. PT MARYCARMEN WELL.
--- NOTE | 2017-04-01 23:39 | NUR ---
PT HAD LIQUID BM, PT CLEANED, REPLACED LINENS, TAMMY CARE DONE. BOOSTED PT UP IN BED, REPOSITIONED FOR COMFORT. PT HAD ANOTHER LIQUID BM, PT CLEANED AGAIN, DEPENDS PLACED, PT REPOSITIONED FOR COMFORT AND SAFETY. RESTRAINTS ASSESSED FOR PT COMFORT AND SAFETY. PT MARYCARMEN WELL.
--- NOTE | 2017-04-02 | NUR ---
IV SITE INTACT, FLUIDS INFUSING EASILY, NO SWELLING OR REDNESS NOTED. CENTRAL LINE SITE INTACT, NO REDNESS OR SWELLING NOTED, FLUIDS INFUSING EASILY THROUGH ALL THREE PORTS. RESTRAINTS ASSESSED FOR PT SAFETY AND COMFORT. PT RESTING QUIETLY, MARYCARMEN VENT WELL.
--- NOTE | 2017-04-02 02:13 | NUR ---
CHANGED PROPOFOL TO 50 MCG/KG/MIN DUE TO LOW BP, PT MARYCARMEN VENT WELL, RASS SCORE -3. WILL CONTINUE TO MONITOR.
--- NOTE | 2017-04-02 02:23 | NUR ---
CALLED TO UP DATE ON PT STATUS OF DECREASED URINE OUTPUT AND LOW BP. ORDER GIVEN TO CHANGE PHENOBARBITOL FROM Q4 HR TO Q6 HR, THEN START DECREASING VERSAID NEEDED TO KEEP RASS SCORE AT -2 AND BP WNL. IV FLUIDS INCREASED TO 125 ML/HR.
--- NOTE | 2017-04-02 02:30 | NUR ---
CHANGED VERSAID TO 4 MG/HR.
--- NOTE | 2017-04-02 03:26 | NUR ---
PT REPOSITIONED TO BACK FOR COMFORT. PT HAD A LOOSE BM, CHANGED ATTENDS AND DID TAMMY CARE. PT RESTRAINTS ASSESSED FOR COMFORT AND SAFETY. PT MARYCARMEN POSITION CHANGE WELL.
--- NOTE | 2017-04-02 04:23 | NUR ---
IV SITE INTACT, NO REDNESS OR SWELLING NOTED, FLUSHES EASILY. CENTRAL LINE INTACT, NO REDNESS OR SWELLING NOTED, FLUIDS INFUSING EAILY. RESTRAINTS ASSESSED FOR PT COMFORT AND SAFETY. PT MARYCARMEN VENT WELL.
--- NOTE | 2017-04-02 06:32 | NUR ---
AM LABS DRAWN FROM BLUE PORT ON CENTRAL LINE. BLOOD EASILY OBTAINED, FLUSHED WITH NS THEN HEP LOCKED. POSIFLOW CAPS CHANGED ON ALL THREE LUMINS.
--- NOTE | 2017-04-02 07:30 | NUR ---
BEDSIDE REPORT RECIEVED.
--- NOTE | 2017-04-02 08:00 | NUR ---
ASSESSMENT DONE. REMAINS ON VENT. TV-480, SIMV-14,PEEP-14, PS-10, FIO2-60, PIP-23. SUCTIONED AND SPUTUM SENT TO LAB. ABGS DRAWM VIA RT. LEFT SUBCALVIAN DRESSING INTACT. CVP DC'D. PROPOFOL GTT AT 50 MCG/KG/MIN=25.2 ML/HR. VERSED GTT AT 5 MG/HR. YNJ=192 ML/HR. ANTIBOTIC INFUSING AT 33 ML/HR. TUBE FEEDING AT 15 ML/HR. HAS STRONG PRODUCTIVE COUGH. ORAL CARE GIVEN. CRUZ CATH PATENT.
--- NOTE | 2017-04-02 10:15 | NUR ---
IVF HELD WHILE MATHIEUO AND MG INFUSING.
--- NOTE | 2017-04-02 10:18 | NUR ---
DR. WAGNER HERE TO SEE PATIENT. VERSED HELD AT THIS TIME WELL PHENOBARB.WILL TITRATE PROPOFOL TOLERATED.
--- NOTE | 2017-04-02 10:30 | NUR ---
OPENING EYES. SQUEEZING HAND WHEN ASKED TO DO SO.
--- NOTE | 2017-04-02 10:37 | NUR ---
PATIENT REMAINS ON THE VENT, DAY 8 TODAY. TUBE FEEDING REMAINS AT 15 ML/HR. PROPOFOL CURRENTLY AT 25.2 ML/HR (665 CALORIES). THE PLAN IS TO EXTUBATE PATIENT IN THE NEXT DAY OR 2. DECREASING SEDATION MEDS TODAY. DR. WAGNER WANTS TO KEEP THE TRICKLE FEEDS GOING, NOT INCREASE THE RATE AT THIS TIME. NO CHANGES AT THIS TIME. WILL CONTINUE TO MONITOR.
--- NOTE | 2017-04-02 10:45 | NUR ---
PROPOFOL DECREASED TO 45 MCG/KG/MIN. FREQUENT SUCTIONING DONE.
--- NOTE | 2017-04-02 11:00 | NUR ---
PROPOFOL DECRESED TO 40 MCG/KG/MIN. WILL CONTINUE TO TITRATE TOLERATED. IS AWAKE, CALM, FOLLOWING COMMANDS.
--- NOTE | 2017-04-02 11:00 | NUR ---
PT REMAINS ON VENTILATOR AND SEDATED. WILL CONTINUE TO MONITOR.
--- NOTE | 2017-04-02 11:35 | NUR ---
AWAKE, STRONG COUGH. BP-154/91 (103). HR-100. PROPOFOL AT 30 MCG/KG/MIN. HOB ELEVATED. CONTINUE ON TUBE FEED AT 15 ML/HR.
--- NOTE | 2017-04-02 12:10 | NUR ---
OFF ALL SEDATION. DR. WAGNER IS HERE.
--- NOTE | 2017-04-02 12:15 | NUR ---
ON CPAP AT 50%. PEEP-10.
--- NOTE | 2017-04-02 12:34 | NUR ---
PEEP TO 8. WIDE AWAKE. EXPLAINING WEANING TO PATIENT. IS VERY AGITATED.
--- NOTE | 2017-04-02 12:55 | NUR ---
DR. WAGNER HERE. ORDERS RECIEVED TO EXTABATE. EXTABATED AND PLACED ON OXYMASK AT 8 L. IS ATTEMPTING TO TALK. IS COUGHING. ORAL SUCTION DONE.
--- NOTE | 2017-04-02 13:08 | NUR ---
PATIENT GIVEN 4 MG IV MORPHINE AT THIS TIME FOR GENERALIZED DISCOMFORT. PATIENT WANTING TO GET UP OUT OF BED AND STAND. PATIENT ABLE TO GET SOME SPUTUM UP. PT ON 8 L OXYMASK AT THIS TIME. PT NOW ASKING FOR HIS MOM TO BE BACK IN THE ROOM. CONTINUE TO MONITOR.
--- NOTE | 2017-04-02 14:04 | NUR ---
CHEST XRAY DONE.
--- NOTE | 2017-04-02 14:20 | NUR ---
COUGHING. ATTEMPTING TO GET OUT OF BED. VALIUM 5 MG IV GIVEN.
--- NOTE | 2017-04-02 14:30 | NUR ---
MUCH CALMER AFTER VALIUM 5 MG IV GIVEN.
--- NOTE | 2017-04-02 15:40 | NUR ---
ATTEMPTING TO GET OOB. VALIUM 5 MG IV REPEATED.
--- NOTE | 2017-04-02 15:48 | NUR ---
RESTFUL AFTER VALIUM.
--- NOTE | 2017-04-02 16:08 | NUR ---
CPAP APPLIED AT 50% FIO2. MORPHINE GIVEN FOR GENERALIZED DISCOMFORT. HOB ELEVATD TO 55 DEGREES.
--- NOTE | 2017-04-02 16:22 | NUR ---
HANDS/ARMS ARE MUCH LESS EDEMATOUS. HAS BEEN TAKING SIPS OF WATER. DOES GET ANXIOUS/RESTLESS/AGITATED. CURSING FREQUENTLY.
--- NOTE | 2017-04-02 16:30 | NUR ---
PATIENT MOTHER IS RUBBING BACK WITH TIGER BALM. PATIENT IS ATTEMPING TO TURN SELF. WAS ABLE TO REMAIN ON BIPAP APPROX HALF HOUR. CONTINUE WITH PRODUCTIVE COUGH.
--- NOTE | 2017-04-02 17:01 | NUR ---
VALIUM 5 MG IV GIVEN IS RESTLESS.
--- NOTE | 2017-04-02 17:47 | NUR ---
WILL YELL OUT CURSE WORDS AT TIMES. Liu RAIN.
--- NOTE | 2017-04-02 19:18 | NUR ---
REPORT TO NEXT SHIFT. IS RESTFUL AT THIS TIME.
--- NOTE | 2017-04-02 19:33 | NUR ---
full bedside report given by Gaby LARA, all questions answered.
--- NOTE | 2017-04-02 20:30 | NUR ---
PT INSISTED ON GETTING UP TO BEDSIDE COMMODE TO HAVE A BM, PT IS A HEAVY THREE PERSON ASSIST. PT ABLE TO HAVE LARGE LOOSE STOOL. DIFFICULT TO GET PT BACK TO BED EVEN WITH THE ASSIST OF A WALKER DUE TO PT WEAKNESS. PT REPOSTIONED UP IN BED AND ASSISTED TO MAKE COMFORTABLE. NOTED THAT PT HAS SMALL SKIN TEAR ON BACK SIDE OF SCROTUM WITH SCANT BLEEDING.
--- NOTE | 2017-04-02 20:42 | NUR ---
IV SITE INTACT, NO REDNESS OR SWELLING NOTED, FLUSH INFUSED EASILY, PT DENIED PAIN WITH INFUSION. CENTRAL LINE INTACT, NO REDNESS OR SWELLING NOTED, FLUID INFUSING EASILY. PT RESTING QUIETLY AT THIS TIME.
--- NOTE | 2017-04-02 20:50 | NUR ---
CALLED FOR AN UPDATE ON PT. ORDER GIVEN TO DECREASE IV FLUIDS TO 65 ML/HR AND CONTINUE WITH Q4 HOUR URINE OUTPUT MONITORING.
--- NOTE | 2017-04-02 21:15 | NUR ---
CALLED SHANNAN, THE PT'S MOTHER, TO UPDATE ON PT STATUS AND REQUEST THAT SHE BRING IN MUSIC FOR BEAU IF SHE HAS IT, AND SOME DRINKABLE YOGURT FOR PROBIOTICS, TOMMOROW WHEN SHE COMES IN TO SEE THE PT. SHE WAS VERY AGREABLE TO THIS.
--- NOTE | 2017-04-02 21:44 | NUR ---
PT SITTING UP IN BED WATCHING TV. PT STATES "I AM GOING TO GIVE YOU A BIG TIP, THANK YOU FOR ALL YOUR HELP". PT REMAINS CONFUSED TO EVENT, AND AT TIMES TALKS ABOUT RECENT HALLUCINATIONS. PT TEARFUL AT TIMES WHEN UNABLE TO LIFT CUP TO MOUTH TO TAKE A DRINK, STATES "YOU DON'T KNOW HOW FRUSTRATING THIS IS". PT IS COOPERATIVE, NON-AGRESSIVE, GRATEFUL.
--- NOTE | 2017-04-02 22:30 | NUR ---
PT GIVEN PO TYLENOL FOR GENERALIZED DISCOMFORT/PAIN. PT WELL ABLE TO SWALLOW PILLS. PT COOPERATIVE AND POLITE. CENTRAL LINE SITE INTACT, BLUE AND WHITE LUMINS NOW IN USE FOR ABX, FLUIDS INFUSING EASILY.
--- NOTE | 2017-04-03 00:28 | NUR ---
IV SITE INTACT, NO REDNESS OR SWELLING NOTED, FLUSHES EASILY, PT DENIES PAIN WITH FLUSH. CENTRAL LINE SITE INTACT, NO REDNESS OR SWELLING NOTED, FLUIDS INFUSING EASILY THROUGH ALL THREE PORTS. HEP LOCKED BLUE PORT ABX WAS FINISHED. PT DENIES PAIN AT THIS TIME. VITALS WNL. URINE OUTPUT IS 2300 ML FOR THE LAST 4 HOURS. PT IS CALM, SLEEPING OFF AND ON.
--- NOTE | 2017-04-03 04:11 | NUR ---
IV SITE INTACT, NO REDNESS OR SWELLING NOTED, FLUSHES EASILY, PT DENIES PAIN WITH FLUSH. CENTRAL LINE INTACT, NO SWELLING OR REDNESS NOTED, FLUIDS INFUSING EASILY, NO LEAKING NOTED A SITE. PT AWAKE AND SITTING UP IN BED DRINKING WATER W/O ASSISTANCE, PT DEXTERITY NOTICEABLY IMPROVED. EDEMA IN BILAT HANDS MUCH IMPROVED. PT HAS CPAP ON AT THIS TIME, MARYCARMEN WELL. PT STILL SLIGHTLY CONFUSED, HOWEVER COOPERATIVE.
--- NOTE | 2017-04-03 05:55 | NUR ---
LABS DRAWN FROM WHITE PORT ON CENTRAL LINE, BLOOD OBTAINED EASILY, FLUSHED WITH NS, THEN ABX RUN THROUGH THIS PORT.
--- NOTE | 2017-04-03 06:30 | NUR ---
PT GIVEN 4 MG IV MORPHINE FOR GENERALIZED PAIN/DISCOMFORT. PT SITTING UP IN BED CPAP NOW OFF, NC BACK ON AT 4L. PT DRANK A CLEAR ENSURE, THEN SIPS OF GRAPE JUICE. PT ROLLED FROM SIDE TO SIDE TO STRAIGHTEN MARYCARMEN RECIO WELL. PT STATES "IT FEELS GOOD TO MOVE AROUND". PT REQUESTS TO HAVE A SUBWAY SANDWICH FOR LUNCH. PT HAS MARYCARMEN ALL PO FLUIDS WELL THIS SHIFT.
--- NOTE | 2017-04-03 07:15 | NUR ---
BEDSIDE REPORT RECIEVED. PATIENT IS RESTFUL AT THIS TIME.
--- NOTE | 2017-04-03 08:00 | NUR ---
ASSESSMENT DONE. C/O GENERAL PAIN. IS COOPERATIVE. IVF PATENT, CRUZ CATH PATENT W/CLEAR YELLOW URINE NOTED. PATIENT IS TALKING ABOUT WHAT HE WANTS TO EAT FOR BREAKFAST. DR. WAGNER HERE AND AWARE. DIET INCREASED TO REGULAR. O2 DECREASED TO 2 L NC. DENIES SHORTNESS OF BREATH. COUGH IS MUSH LESS AND NON-PRODUCTIVE. TAKING WATER. TALKING ABOUT INCREASING ACTIVITY.
--- NOTE | 2017-04-03 09:00 | NUR ---
TOOK BREAKFAST FAIR. DENIES NAUSEA.
--- NOTE | 2017-04-03 10:00 | NUR ---
UP TO COMMODE WITH ASSIST OF 2 STAFF. TOLERATED TRANSFER FAIR. LEGS ARE WEAK.
--- NOTE | 2017-04-03 11:15 | NUR ---
UP TO COMMODE TO URINATE 550 ML CLEAR YELLOW URINE. WAS NOT ABLE TO VOID TO URINAL IN BED OR AT BEDSIDE.
--- NOTE | 2017-04-03 11:41 | NUR ---
PHYS THERAY HERE TO WORK WITH PATIENT.
--- NOTE | 2017-04-03 13:24 | NUR ---
PATIENT GIVEN A PAIN PILL UPON REQUEST. PT NOW WANTING TO SLEEP AND TAKE A NAP AFTER HIS LUNCH. PT'S MOTHER REMAINS AT BEDSIDE AND ATTENTIVE TO PATIENT. CONTINUE TO MONITOR.
--- NOTE | 2017-04-03 13:47 | NUR ---
RESTFUL AT THIS TIME.
--- NOTE | 2017-04-03 14:30 | NUR ---
IV STARTED TO RAC BY Aman JONES RN. THIS DONE BY USE OF ULTRASOUND.
--- NOTE | 2017-04-03 16:28 | NUR ---
IN BED, VISITING WITH FRIEND. IS WITHOUT C/O.
--- NOTE | 2017-04-03 18:10 | NUR ---
NORCO GIVEN FOR PAIN.
--- NOTE | 2017-04-03 18:45 | NUR ---
HAD VERY GOOD DAY. CVC DC'D TODAY.HAS BEEN TAKING PO WELL. REMAINS VERY WEAK IN LEGS. LAST TEMP AT 1800 WAS 100.0. HAS BEEN ON O2 AT 2 LITERS MOST OF DAY, AT 1815 PATIENT REQUESTED O2 TO BE INCREASED. O2 INCREASED TO 4L. CONTINUE WITH PRODUCTIVE COUGH. HAD 2 LIQUID STOOLS TODAY. GOOD U/O. CRUZ DC'D THIS MORNING.
--- NOTE | 2017-04-03 19:30 | NUR ---
FULL BEDSIDE REPORT GIVEN BY JIM LARA. ALL QUESTIONS ANSWERED.
--- NOTE | 2017-04-03 20:05 | NUR ---
PT'S MOTHER HERE TO VISIT WITH PT.
--- NOTE | 2017-04-03 21:00 | NUR ---
IV SITE INTACT, NO REDNESS OR SWELLING NOTED, PT DENIES PAIN WITH FLUSH.
--- NOTE | 2017-04-03 23:06 | NUR ---
PT HAVING PRODUCTIVE COUGHING EPISODES ABOUT TWICE AN HOUR, ABLE TO EXPECTORATE MODERATE AMOUNTS OF SPUTUM, CLEAR/WHITE IN COLOR.
--- NOTE | 2017-04-03 23:37 | NUR ---
CALLED TO UPDATE PT ELEVATED HR. ORDER GIVEN FOR ATIVAN 1 MG PO Q6.
--- NOTE | 2017-04-04 00:08 | NUR ---
IV SITE INTACT, NO REDNESS OR SWELLING NOTED, FLUSHES EASILY, PT DENIES PAIN WITH FLUSH. PT DENIES NAUSEA, PAIN AND SOB AT THIS TIME. PT USING URINAL FREQUENTLY.
--- NOTE | 2017-04-04 01:54 | NUR ---
LINENS CHANGED PT MISSED URINAL AND SOAKED GOWN AND CHUCKS. ROLLING FROM SIDE TO SIDE CAUSED COUGHING, PT EXPECOTRATED MODERATE AMOUNT OF THICK CLEAR SPUTUM STREAKS OF RED NOTED WELL. BARRIER CREAM APPLIED TO BUTTOCKS AND SCROTUM AREA IS RED. PT MARYCARMEN WELL, ABLE TO ASSIST WITH REPOSITIONING.
--- NOTE | 2017-04-04 03:05 | NUR ---
PT ATTEMPTED TO WEAR CPAP, UNABLE TO MARYCARMEN. OXY-MASK BACK IN PLACE AT 4L.
--- NOTE | 2017-04-04 03:18 | NUR ---
PT CHANGED TO OXY-MASK FOR COMFORT.
--- NOTE | 2017-04-04 03:57 | NUR ---
PT UP TO BEDSIDE COMMODE WITH HEAVY TWO PERSON ASSIST. ACTIVITY INDUCED COUGHING, PT ABLE TO EXPECTORATE MODERATE AMOUNT OF CLEAR SPUTUM WITH SOME RED STREAKS. PT BACK TO BED, PT SOB. TURNED OXY-MASK UP TO 9 L FOR 3-4 MIN, THEN BACK TO 4L AFTER PT RECOVERED SATS INTO THE 90'S. PT STRENGHT AND COORDINATION NOTABLY IMPROVED FROM 24 HOURS PRIOR. PT COOPERATIVE, SLIGHTLY IMPULSIVE.
--- NOTE | 2017-04-04 04:12 | NUR ---
IV SITE INTACT, NO REDNESS OR SWELLING NOTED, FLUSHES EASILY, PT DENIES PAIN WITH FLUSH.
--- NOTE | 2017-04-04 05:43 | NUR ---
PT TURNED HIMSELF ONTO HIS SIDE TO SLEEP, CAUSED COUGHING FIT, ABLE TO EXPECTORATE MODERATE SPUTUM.
--- NOTE | 2017-04-04 07:49 | NUR ---
AWAKE, VOIDING TO URINAL. PRODUCTIVE COUGH. TALK W/PATIENT ABOUT PLAN OF CARE, IS SOMEWHAT UNDERSTANDING. WILL REVIEW THIS W/PATIENT THROUGH DAY.
--- NOTE | 2017-04-04 08:30 | NUR ---
DR. KEYES HERE TO SEE PATIENT. NO ORDERS AT THIS TIME. PATIENT IS VERY TALKATIVE.
--- NOTE | 2017-04-04 08:40 | NUR ---
ROUTINE MEDS GIVEN.
--- NOTE | 2017-04-04 10:45 | NUR ---
REPORT GIVEN TO MED-SURG.
--- NOTE | 2017-04-04 11:10 | NUR ---
TO MED-SURG VIA CHAIR. REMAINS ON 4 L NC. TAKING FLUIDS WELL.
--- NOTE | 2017-04-04 11:17 | NUR ---
PT TO FLOOR VIA CHAIR. A\\O. ON 4L NC. PT DENIES PAIN. LUNGS CLEAR. STATES "BALLS " ARE STILL SWOLLEN.DENIES NEEDS.
--- NOTE | 2017-04-04 12:27 | NUR ---
ASSISTED PT WITH ORDERING LUNCH. PT EXPLAINING HOW HE GOT HERE AND HOW APPRECIATIVE HE IS THAT HE IS ALIVE. PT STATES HE DID WELL WITH RISK OFFICER. WOULD LIKE SOMETHING FOR PAIN IF AVAILABLE. WILL CHECK.
--- NOTE | 2017-04-04 13:18 | NUR ---
ADMINSTERED PAIN MEDS. PT RATES 03/10. EATING LUNCH SLOWLY PER INSTRUCTIONS. TOLERATING WELL.
--- NOTE | 2017-04-04 13:58 | NUR ---
PT AMBULATED INTO RESTROOM WITH FWW AND STANDBY ASSIST. HAD LARGE BM AND UNMEASURED URINE. DENIES FURTHER CONCERNS.
--- NOTE | 2017-04-04 16:18 | NUR ---
PT IN BED USING URINAL. STARTED VANCO. PT DENIES CONCERNS.
--- NOTE | 2017-04-04 18:26 | NUR ---
PT TRANSFERED FROM CCU TODAY. EMOTIONAL, GIVEN ATIVAN. SCROTAL SWELLING. 2L NC. AB INFUSING. REG DIET, TOLERATING WELL. WOULD LIKE SLEEPING PILL TONIGHT. WORKED WITH PT.
--- NOTE | 2017-04-04 19:00 | NUR ---
BEDSIDE SHIFT REPORT RECEIVED FROM JANE JUNG. PT IS SITTING UP IN BED, PT'S MOTHER AT BEDSIDE. IV SL. 2L O2 VIA NC IN PLACE. PT DENIES NEEDS AT THIS TIME, WILL CONTINUE TO MONITOR.
--- NOTE | 2017-04-04 21:49 | NUR ---
ASSESSMENT COMPLETED. PT IS ALERT/ORIENTED, REPORTS 6/10 PAIN IN LEFT SIDE, 1 TAB NORCO GIVEN. DENIES NAUSEA. LUNGS COARSE/DIM, 2L VIA NC. TELE #8, SINUS TACHY, HR: 100-110. PT TOLERATED DINNER WELL, DENIES NAUSEA. TRACE GENERALIZED EDEMA PRESENT, SCATTERED BRUISES, AND RASH TO UPPER BACK. PT ALSO HAS DEPENDENT EDEMA TO SCROTUM. NEW IV PLACED BY INSURANCE PRODUCER IN LEFT AC, VANCO INFUSING AT THIS TIME. SCD'S IN PLACE. PT ANXIOUS, 75MG VISTARIL GIVEN. PT IS READY FOR BED, DENIES FURTHER REQUESTS AT THIS TIME, CALL LIGHT IS WITHIN REACH.
--- NOTE | 2017-04-04 23:01 | NUR ---
PT UP TO BATHROOM WITH 2-PA AND FWW, HAD BM. PT HAD BEEN INCONTINENT OF URINE WHILE IN BED, NEW BED LINENS PROVIDED. PT HAS RETURNED TO BED NOW. CALL LIGHT IS WITHIN REACH.
--- NOTE | 2017-04-05 01:56 | NUR ---
PT CALLED, NEEDED URINAL EMPTIED. PT REPORTS 6/10 PAIN IN LEFT SIDE, 1 TAB NORCO GIVEN. PT ANXIOUS, PRN ATIVAN GIVEN. ASSESSMENT COMPLETED. LUNGS COARSE/DIM, 2L O2 VIA NC IN PLACE. TELE #8, HR: 114. BOWEL TONES ACTIVE. PT DENIES FURTHER REQUESTS AT THIS TIME, CALL LIGHT IS WITHIN REACH.
--- NOTE | 2017-04-05 04:27 | NUR ---
MATHIEUO STARTED AT THIS TIME. PT SLEEPING, RESPIRATIONS EVEN AND UNLABORED. NO APPARENT DISTRESS. WILL CONTINUE TO MONITOR.
--- NOTE | 2017-04-05 05:15 | NUR ---
PT ANXIOUS, PRN ATIVAN AND VISTARIL EACH GIVEN ONCE. REPORTS LEFT SIDED PAIN, PRN NORCO GIVEN Q4 HOURS. NO NAUSEA. LUNGS COARSE/DIM, 2L VIA NC. TELE #8, SINUS TACHY, HR: 100-110S. BOWEL TONES ACTIVE, BM DURING THE NIGHT, NO NAUSEA. VOIDING QS, USES URINAL. GENERALIZED EDEMA. NEW IV, SL EXCEPT FOR IV VANCO. 2-PA WITH FWW.
--- NOTE | 2017-04-05 05:56 | NUR ---
PT WOKE UP VERY ANXIOUS, HAD BEEN INCONTINENT OF URINE IN BED AND NEEDED TO GO TO BATHROOM. PT EXITED BED IN HURRY, TELE FELL OFF AND SCD TUBING TORE. ASSISTED PT TO BATHROOM, CHANGED BED LINENS, THEN HELPED PT RETURN TO BED. NEW SCD'S AND TELE ELECTRODES PLACED. NORCO AND VISTARIL GIVEN. BED ALARM IS ON FOR SAFETY.
--- NOTE | 2017-04-05 08:00 | NUR ---
PT ALERT AND INTERACTIVE FOR SHIFT CHANGE. DENIES REQUESTS, EXPRESSES NO C/O. BREAKFAST ORDERED.
--- NOTE | 2017-04-05 11:20 | NUR ---
PT CONTINUES UP IN BED MEDICATED FOR C/O BACK PAIN AGREES THIS WAS EFFECTIVE FOR HIM. MOTHER IN TO SEE PT, H20 AT BEDSIDE, CALL LIGHT IN HAND
--- NOTE | 2017-04-05 11:39 | NUR ---
PT RESTING IN BED. WHEN I TOLD HIM I WOULD'T STICK OR POKE HIM HE SAID"COME ON IN". I TOLD HIM THAT THIS IS OUR FIRST CONVERSATION WITH HIM OFF THE VENT. I TOLD HIM I PRAYED FOR HIM OFTEN WHILE HE WAS ON THE VENT. HE GOT SOMEWHAT EMOTIONAL, AND CONFESSED THAT HE WASN'T CONFUCIANISM, BUT KIND OF SPIRITUAL. HE SHARED HE HAD MOMENTS WHERE HE DIDN'T WANT TO GO ON. EXPRESSED SOME ANGER WITH HAVING TO BE RESTRAINED WHEN HE WAS COMING OFF HE VENT. HE THANKED ME FOR COMING BY AND ASKED IF I WOULD STOP BY AGAIN. HIS MOTHER ALSO STOPPED BY OUR OFFICE AND THANKED ME FOR VISITING AND ASKED IF I WOULD CONTINUE, WHICH I WILL.
--- NOTE | 2017-04-05 17:26 | NUR ---
PT UP AND AMBULATES THE MIKE MAKING 3 ROUNDS. PT STEADY ON HIS FEET, USES WALKER HOWEVER STATING THAT HIS BACK PAIN MAKES HIM UNSTEADY. PT ABLE TO VISIT WHILE MAKING ROUNDS RETURNS TO ROOM, RESTING IN BED
--- NOTE | 2017-04-05 18:31 | NUR ---
Patient is very talkative.
--- NOTE | 2017-04-05 19:15 | NUR ---
BEDSIDE SHIFT REPORT RECEIVED FROM JANE CERRATO. PT IS CURRENTLY SITTING UP IN BED AND WATCHING TV. RA. PATI GOMES. SCD'S IN PLACE. PT RECENTLY HAD PAIN MEDICATION AND DENIES FURTHER REQUESTS AT THSI TIME.
--- NOTE | 2017-04-05 20:29 | NUR ---
ASSESSMENT COMPLETED. PT IS ALERT AND ORIENTED, REPORTS THAT PAIN HAS IMPROVED SINCE HIS LAST DOSE OF PAIN MEDICATION. LUNGS CLEAR, DIM IN BASES, RA, R.T. IN TO ASSESS AND INSTRUCT BREATHING EXERCISES. TELE #8, SINUS TACHY, HR:114. BOWEL TONES ACTIVE, DENIES NAUSEA. GENERALIZED EDEMA IS TRACE, APPEARS TO BE IMPROVING. SCD'S IN PLACE. PT SLIGHTLY ANXIOUS, PRN ATIVAN GIVEN. DENIES FURTHER REQUESTS AT THIS TIME, WILL CONTINUE TO MONTIOR.
--- NOTE | 2017-04-05 22:40 | NUR ---
STARTED VANCO INFUSION, IV FLUSHES WNL. PT REPORTS 5/10 PAIN IN LEFT SIDE, 1 TAB NORCO GIVEN. PT PROVIDED WITH SNACK OF PUDDING AND MAREN CRACKERS, DENIES FURTHER REQUESTS.
--- NOTE | 2017-04-06 00:46 | NUR ---
PT HAD BEEN UP TO BATHROOM WITHOUT USING CALL LIGHT, RETURNE TO BED. PT STATES HE IS COMFORTABLE AND THAT HIS PAIN IS BETTER SINCE RECEIVING NORCO. VANCO INFUSION COMPLETED. IV FLUSHED AND SL. SCD'S ON. BED ALARM ON FOR SAFETY. CALL LIGHT IS WITHIN REACH. WILL CONTINUE TO MONITOR.
--- NOTE | 2017-04-06 02:00 | NUR ---
WHILE SITTING AT NURSES' STATION I HEARD LOUD CRASH IN PT'S ROOM AND THEN THE PT'S BED ALARM WENT OFF. UPON ENTERING ROOM, FOUND PT ON THE FLOOR ON STOMACH. SCD'S ATTACHED TO MACHINE ON BED. PT STATES HE NEEDS TO GO TO BATHROOM. PT DENIES HITTING HEAD. ASSISTED HIM WITH 2-PA TO TOILET. PT STATES HE WOKE UP NEEDING TO GO TO THE BATHROOM AND REMEMBERED THAT I HAD DISCONNECTED IV TUBING, SO HE THOUGHT HE WASN'T CONNECTED TO ANYTHING AND COULD GET UP, FORGETTING HE STILL HAD SCD'S. PT STATES HE LANDED ON FOREARMS AND KNEES. PT ASSISTED TO CHAIR. DR. KEYES NOTIFIED OF PT FALL, NEW ORDERS FOR NEURO CHECKS RECEIVED. ASSESSMENT COMPLETED. VITAL SIGNS TAKEN, WNL. NEURO CHECKS WNL. RIGHT ELBOW AND BILATERAL KNEES APPEAR REDDENED, RIGHT ELBOW ALSO HAS BUMP. NURSING WOOD CAR BUILDER, RONALD, NOTIFIED AND IN TO SPEAK WITH PT. NEW BED IN PT'S ROOM WITH VARIABLE BED ALARM SENSITIVITIES, SINCE PREVIOUS BED ONLY HAD 1 BED ALARM SETTING AND PT FULLY EXITED BED BEFORE IT ALARMED. PT RETURNED TO BED, BED ALARM IN PLACE ON HIGHER SENSITIVITY. PRN ATIVAN AND NORCO GIVEN. CALL LIGHT IN PLACE. SCD'S OFF AT THIS TIME. RAILS UP X4.
--- NOTE | 2017-04-06 04:08 | NUR ---
IN TO START VANCO INFUSION. PT CURRENTLY SLEEPING, NO APPARENT DISTRESS. RESPIRATIONS EVEN AND UNLABORED. BED ALARM ON, WILL CONTINUE TO MONITOR.
--- NOTE | 2017-04-06 05:22 | NUR ---
ORIENTED. PRN NORCO GIVEN Q4 HOURS. PRN ATIVAN GIVEN TWICE, ANXIOUS. LUNGS CLEAR, DIM IN BASES, RA. TELE #8, SINUS TACHY, HR: 100-110'S. BOWEL TONES ACTIVE. BM LAST NIGHT. PT FELL EXITING BED WITHOUT CALLING, BED ALARM ON FOR SAFETY. NEURO CHECKS D/T FALL, WNL. IV SL EXCEPT IV VANCO. 1-PA WITH FWW. VOIDING QS, USES URINAL. GENERALIZED EDEMA IMPROVING.
--- NOTE | 2017-04-06 05:45 | NUR ---
PT ATTEMPTED TO EXIT BED WITHOUT CALLING, I WAS ABLE TO GET TO HIS ROOM BEFORE HE GOT OUT OF BED, THANKS TO BED ALARM. UP TO BATHROOM WITH 1-PA. VOIDED AND THEN RETURNED TO BED. BED ALARM ON. CALL LIGHT WITHIN REACH.
--- NOTE | 2017-04-06 10:37 | NUR ---
PT AWAKE AND UP IN BED AT SHIFT CHANGE. NO C/O OF PAIN BUT STATES HE WANTS HIS PAIN PILL WITH BREAKFAST BECAUSE HE KNOWS HIS BACK WILL HURT WHEN HE GETS UP AND MOVING. PT TOLERATES BREAKFAST WELL, THEN UP TO WORK WITH P/T. ABLE TO AMBULATE WITHOUT A WALKER TODAY DOES SEVERAL LAPS STEADY ON HIS FEET. PT RETURNS TO ROOM FOR SHOWER. STAFF SBA
--- NOTE | 2017-04-06 11:31 | NUR ---
DR KEYES IN TO SEE PT, UPDATE OF PLAN OF CARE DISCUSSED QUESTIONS ASKED AND ANSWERED.
== END 2017-04-06 13:40 | disposition swing bed (61) | DRG 870 ==
LOC: ED 08:29 → CCU 12:19 → MS 04-04 11:05
PROVIDERS: ADMIT Internal Medicine
PROC: 0BH17EZ Insertion of Endotracheal Airway into Trachea, Via Natural or Artificial Opening (ICD-10-PCS; principal; 2017-03-26)
PROC: 5A1955Z Respiratory Ventilation, Greater than 96 Consecutive Hours (ICD-10-PCS; 2017-03-26)
PROC: 02HV33Z Insertion of Infusion Device into Superior Vena Cava, Percutaneous Approach (ICD-10-PCS; 2017-03-26)
PROC: B548ZZA Ultrasonography of Superior Vena Cava, Guidance (ICD-10-PCS; 2017-03-26)
PROC: 4A133B1 Monitoring of Arterial Pressure, Peripheral, Percutaneous Approach (ICD-10-PCS; 2017-03-26)
DX: A41.9 Sepsis, unspecified organism (principal); J18.9 Pneumonia, unspecified organism; R65.21 Severe sepsis with septic shock; J96.01 Acute respiratory failure with hypoxia; J69.0 Pneumonitis due to inhalation of food and vomit; F10.231 Alcohol dependence with withdrawal delirium; K92.2 Gastrointestinal hemorrhage, unspecified; F84.0 Autistic disorder; E87.0 Hyperosmolality and hypernatremia; E87.3 Alkalosis; F17.210 Nicotine dependence, cigarettes, uncomplicated; I10 Essential (primary) hypertension; D64.9 Anemia, unspecified; D69.6 Thrombocytopenia, unspecified; E83.51 Hypocalcemia; E87.70 Fluid overload, unspecified; F90.9 Attention-deficit hyperactivity disorder, unspecified type; R36.9 Urethral discharge, unspecified; F41.9 Anxiety disorder, unspecified; M62.81 Muscle weakness (generalized); E87.6 Hypokalemia; E83.42 Hypomagnesemia; R74.0 Nonspecific elevation of levels of transaminase and lactic acid dehydrogenase [LDH]; Z88.8 Allergy status to other drugs, medicaments and biological substances
CPT/HCPCS: 31500; 31720; 36415; 36556; 36600; 36620; 51702; 51798; 71010; 71020; 71260; 80048; 80053; 80069; 80076; 80176; 80202; 81001; 82010; 82803; 83605; 83690; 83735; 84100; 84478; 84484; 85007; 85025; 85610; 87040; 87070; 87088; 87205; 87491; 87591; 93005; 93010; 94002; 94003; 94640; 94660; 94668; 94760; 94799; 96361; 96365; 96375; 96376; 97110; 97116; 97163; 97165; 97530; 99285; 99407; G0480; J0330; J0610; J0696; J1650; J1720; J1956; J2060; J2185; J2250; J2270; J2405; J2560; J2704; J3010; J3360; J3370; J3411; J3475; J3480; J7030; J7042; J7060; J7070; J7120; Q0177; Q9967

== ENCOUNTER 2017-04-06 13:41 | Inpatient (IN) | payer BC ==
[~2017-04-06] VITALS: Ht 188 cm; Wt 85.0 kg
[2017-04-08] MEDS ORDERED: CYMBALTA30 MG PO (14:54)
[2017-04-08] MEDS ORDERED: NICOTINE PATCH1 EA TD (14:54)
[2017-04-08] MEDS ORDERED: REMERON30 MG PO (14:54)
== END 2017-04-08 15:40 | disposition home or self-care (01) | DRG 947 ==
LOC: MS 13:41
PROVIDERS: ADMIT Internal Medicine
DX: R53.81 Other malaise (principal); J96.01 Acute respiratory failure with hypoxia; J69.0 Pneumonitis due to inhalation of food and vomit; F10.231 Alcohol dependence with withdrawal delirium; E87.0 Hyperosmolality and hypernatremia; F84.0 Autistic disorder; E87.6 Hypokalemia; E83.42 Hypomagnesemia; R36.9 Urethral discharge, unspecified; D64.9 Anemia, unspecified; D69.6 Thrombocytopenia, unspecified; F90.9 Attention-deficit hyperactivity disorder, unspecified type
CPT/HCPCS: 97112; 97116; 97162; 97530; J3370

== ENCOUNTER 2019-03-27 14:59 | Emergency (ER) | payer SELFPAY ==
[~2019-03-27] VITALS: Ht 188 cm; Wt 93.0 kg
[~2019-03-27 14:59] MED LIST changes: +CYMBALTA30 MG PO; +NICOTINE PATCH1 EA TD; +REMERON30 MG PO
[2019-03-27] MEDS ORDERED: NORCO 10-325 T1 EACH PO (15:38)
[2019-03-27] MEDS ORDERED: CRUTCH1 EACH (15:38)
== END 2019-03-27 16:06 | disposition home or self-care (01) ==
LOC: ED 14:59
PROC: 2W3QX1Z Immobilization of Right Lower Leg using Splint (ICD-10-PCS; principal; 2019-03-27)
DX: S82.831A Other fracture of upper and lower end of right fibula, initial encounter for closed fracture (principal); I10 Essential (primary) hypertension; Z87.891 Personal history of nicotine dependence; Z88.6 Allergy status to analgesic agent; Z79.899 Other long term (current) drug therapy; W18.30XA Fall on same level, unspecified, initial encounter
CPT/HCPCS: 29515; 73610; 99283-25; J1885

== ENCOUNTER 2020-08-16 11:45 | Emergency (ER) | payer OTHER ==
[~2020-08-16] VITALS: Ht 188 cm; Wt 93.0 kg
[~2020-08-16 11:45] MED LIST changes: +CRUTCH1 EACH; +NORCO 10-325 T1 EACH PO
--- NOTE | 2020-08-18 07:44 | PATH ---
[facility] [address] [place], [place] [address] Signed ORDERING PHYSICIAN: Fredi Mensah MD PATIENT NAME: JOSE GARZA ALAN GENDER: M : 1980 Prior History: No cases found. SPECIMEN(S): MOLECULAR PATHOLOGY RESULTS: SARS-CoV-2 Not Detected ADDITIONAL NOTES.: The [employer] Fusion SARS-CoV-2 Assay is a multiplex real-time PCR (RT-PCR) in vitro diagnostic test intended for the qualitative detection of RNA from SARS-CoV-2 from individuals who meet COVID-19 clinical and/or epidemiological criteria. In general, SARS-CoV-2 RNA can be detected during the acute phase of infection. Positive results indicate the presence of SARS-CoV-2 RNA. Clinical correlation with patient history and other diagnostic information is necessary to determine patient infection status. Positive results do not rule out bacterial infection or co-infection with other viruses. Negative results do not preclude SARS-CoV-2 infection and should not be used as the sole basis for patient management decisions. Negative results must be combined with other clinical observations, patient history, and epidemiological information. The [employer] Fusion SARS-CoV-2 Assay is not yet approved or cleared by the [place] FDA. When there are no FDA-approved or cleared tests available, and other criteria are met, FDA can make tests available under an emergency access mechanism called an Emergency Use Authorization (EUA). The EUA for this test is supported by the [place] of Health and Human Service's (HHS's) declaration that circumstances exist to justify the emergency use of in vitro diagnostics for the detection and/or diagnosis of the virus that causes COVID-19. This EUA will remain in effect for the duration of the COVID-19 declaration justifying emergency of IVDs, unless it is terminated or revoked by FDA, after which the test may no longer be used. The [employer] Fusion SARS-CoV-2 Assay is for use only under EUA PATIENT NAME: JOSE GARZA PATHOLOGY DATE OF : [birth year] REPORT #: [id number] PHYSICIAN: MIKY PATHOLOGY PCP: NO PRIMARY CARE PHYSICIAN REPORT IS CONFIDENTIAL AND NOT TO BE RELEASED WITHOUT AUTHORIZATION [facility] [address] [place], [place] [address] Signed in laboratories certified under the Clinical Laboratory Improvement Amendments of 1988 (CLIA) to perform high complexity tests. [facility] is certified under CLIA to perform high complexity clinical laboratory testing. Selvin Huynh PERFORMING LABORATORY.: Molecular testing was performed by [facility] [place] [address] (Ferry Captain: Rashard Solano D.O.; CLIA#: [id number]) Diagnostician: System Interface Pathologist Electronically Signed 08/18/2020 Copies: ~ PATIENT NAME: JOSE GARZA PATHOLOGY DATE OF : [birth year] REPORT #: [id number] PHYSICIAN: MIKY HUERTA PCP: NO PRIMARY CARE PHYSICIAN REPORT IS CONFIDENTIAL AND NOT TO BE RELEASED WITHOUT AUTHORIZATION
== END 2020-08-16 14:32 | disposition home or self-care (01) ==
LOC: ED 11:45
DX: R19.7 Diarrhea, unspecified (principal); Z20.828 Contact with and (suspected) exposure to other viral communicable diseases; I10 Essential (primary) hypertension; Z88.8 Allergy status to other drugs, medicaments and biological substances
CPT/HCPCS: 80053; 85025; 99284; C9803; J7030

== ENCOUNTER 2021-08-19 06:44 | Emergency (ER) | payer SELFPAY ==
[~2021-08-19] VITALS: Ht 188 cm; Wt 93.0 kg
[2021-08-19] MEDS ORDERED: PEPTO-BISM262 MG/15 PO ×2 (07:21)
[2021-08-19] MEDS ORDERED: TUMS200 MG PO (07:21)
[2021-08-19] MEDS ORDERED: ONDANSETRON ODT4 MG PO (13:08)
== END 2021-08-19 13:48 | disposition home or self-care (01) ==
LOC: ED 06:44
DX: E83.42 Hypomagnesemia (principal); F10.99 Alcohol use, unspecified with unspecified alcohol-induced disorder; I10 Essential (primary) hypertension; Z87.01 Personal history of pneumonia (recurrent); Z88.6 Allergy status to analgesic agent
CPT/HCPCS: 80053; 81001; 83690; 83735; 85025; 96365; 96366; 96375; 96376; 99284-25; J2060; J2405; J3475; J7030; J7040

== ENCOUNTER 2021-09-18 08:05 | Emergency (ER) | payer SELFPAY ==
[~2021-09-18] VITALS: Ht 188 cm; Wt 93.0 kg
[~2021-09-18 08:05] MED LIST changes: +ONDANSETRON ODT4 MG PO; +PEPTO-BISM262 MG/15 PO; +TUMS200 MG PO
--- OUTSIDE RECORDS SUMMARY | 2021-09-18 08:12 | XMS ---
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 - 2 Visits in 30 Days CARE PROVIDERS There are no care providers on record at this time. [facility] has no Care Guidelines for this patient. [place] [facility]12 MO.) [facility] NOTE: Visits indicate total known visits. ED/[facility] [place] [place] VISIT TRACKING (12 MO.) 09[facility]18/2021 08[facility] [place] [facility] COMPLAINT: - NAUSEA,VOMITING 08/19/2021 06:45 [facility] [place] TYPE: Emergency COMPLAINT: - VOMITING, WEAKNESS, LETHARGIC,DEHYDRATED DIAGNOSES: - Hypomagnesemia - Allergy status to analgesic agent - Personal history of pneumonia (recurrent) - Essential (primary) hypertension - Nausea with vomiting, unspecified - Alcohol use, unspecified with unspecified alcohol-induced disorder INPATIENT VISIT TRACKING (12 MO.) No inpatient visits to display in this time frame [email or web address]
[2021-09-18] MEDS ORDERED: CHLORDIAZEPOXID25 MG PO (11:55)
[2021-09-18] MEDS ORDERED: ONDANSETRON ODT8 MG PO (11:55)
== END 2021-09-18 12:11 | disposition home or self-care (01) ==
LOC: ED 08:05
DX: K29.00 Acute gastritis without bleeding (principal); F10.10 Alcohol abuse, uncomplicated; I10 Essential (primary) hypertension; Z88.6 Allergy status to analgesic agent
CPT/HCPCS: 80053; 83690; 85025; 96374; 96375; 99284-25; C9113; J1790; J2060; J2405; J7121

== ENCOUNTER 2022-10-22 19:26 | Emergency (ER) | payer OTHER ==
[~2022-10-22] VITALS: Ht 188 cm; Wt 81.7 kg
[~2022-10-22 19:26] MED LIST changes: +CHLORDIAZEPOXID25 MG PO; +ONDANSETRON ODT8 MG PO
[2022-10-22] MEDS ORDERED: HYDROCODON-ACE1 EA10 PO (21:21)
== END 2022-10-22 21:30 | disposition home or self-care (01) ==
LOC: ED 19:26
DX: S80.02XA Contusion of left knee, initial encounter (principal); S80.01XA Contusion of right knee, initial encounter; S40.022A Contusion of left upper arm, initial encounter; S40.021A Contusion of right upper arm, initial encounter; S20.20XA Contusion of thorax, unspecified, initial encounter; Z20.822 Contact with and (suspected) exposure to COVID-19; F10.129 Alcohol abuse with intoxication, unspecified; Y90.8 Blood alcohol level of 240 mg/100 ml or more; S20.319A Abrasion of unspecified front wall of thorax, initial encounter; S40.812A Abrasion of left upper arm, initial encounter; S40.811A Abrasion of right upper arm, initial encounter; S80.212A Abrasion, left knee, initial encounter; S80.211A Abrasion, right knee, initial encounter; W17.89XA Other fall from one level to another, initial encounter; Y93.89 Activity, other specified; Y92.828 Other wilderness area as the place of occurrence of the external cause
CPT/HCPCS: 36415; 70450; 71260; 72125; 74177; 80053; 81001; 83605; 85025; 86850; 86900; 86901; 87502; 90715; 96375; 96376; 99284-25; A9270; C9803; G0480; J2250; J3010; J7121; Q9967; U0003

== ENCOUNTER 2023-09-17 10:56 | Emergency (ER) | payer OTHER ==
[~2023-09-17] VITALS: Ht 188 cm; Wt 81.7 kg
[~2023-09-17 10:56] MED LIST changes: +HYDROCODON-ACE1 EA10 PO
[2023-09-17 11:50] LABS: BASOPHILS 2.5 % (0-2); HEMATOCRIT 42.9 % (35.0-50.0); HEMOGLOBIN 14.8 g/dL (12.0-18.0); LYMPHOCYTES 11.1 % (24-44); MCH 32.4 (27-36); MCHC 34.5 g/dl (30-36); MCV 93.7 fl (81-99); MONOCYTES 8.5 % (0-12); NEUTROPHILS 74.9 % (39-80); PLATELET COUNT 130 K/uL (140-440); RBC 4.58 M/ul (4.3-5.7); RDW 13.1 (10.5-15.0)
[2023-09-17 12:05] LABS: ALBUMIN 3.7 g/dL (3.4-5.0); ALBUMIN/GLOBULIN RATIO 0.86 (1.1-2.4); ALCOHOL, MEDICAL <3 ng/dL (<3); ALKALINE PHOSPHATASE 99 U/L (46-116); ALT (SGPT) 66 U/L (14-59); ANION GAP 14.9 (7-21); AST (SGOT) 46 U/L (15-37); BILIRUBIN, TOTAL 0.8 ng/dL (0.2-1.0); BUN/CREATININE RATIO 15.27 (6.0-28.6); CARBON DIOXIDE 25 mmol/L (21-32); CHLORIDE 98 mmol/L (98-107); CREATININE, SERUM 0.72 mg/dL (0.70-1.30); GLOMERULAR FILTRATION RATE,EST 115 mL/min (>60); POTASSIUM 3.9 mmol/L (3.5-5.1); UREA NITROGEN 11 mg/dL (7-18)
[2023-09-17 12:25] LABS: INFLUENZA B NAA NEGATIVE (NEGATIVE); RESPIRATORY SYNCYTIAL VIR NAA NEGATIVE (NEGATIVE)
[2023-09-17 15:03] VITALS: BP 134/100
--- NOTE | 2023-09-17 22:07 | EKG ---
[facility] [address] [place] [address] Signed Normal sinus rhythm with sinus arrhythmia Normal ECG When compared with ECG of 26-MAR-2017 08:54, Vent. rate has decreased BY 62 BPM Confirmed by Felipa Hammer MD () on 09/17/2023 10:07:05 PM Electronically Signed By: FELIPA HAMMER MD 09/17/232206 PATIENT NAME: JOSE GARZA Electrocardiogram DATE OF : [birth year] PHYSICIAN: FELIPA HAMMER MD REPORT #: [id number] REPORT IS CONFIDENTIAL AND NOT TO BE RELEASED WITHOUT AUTHORIZATION
== END 2023-09-17 15:01 | disposition home or self-care (01) ==
LOC: ED 10:56
PROVIDERS: Emergency Medicine
DX: R10.9 Unspecified abdominal pain (principal); I10 Essential (primary) hypertension; Z88.8 Allergy status to other drugs, medicaments and biological substances; Z79.899 Other long term (current) drug therapy; Z20.822 Contact with and (suspected) exposure to COVID-19
CPT/HCPCS: 36415; 74177; 76705; 80053; 83690; 85025; 87502; 93005; 93010; G0480; Q9967; U0002

== ENCOUNTER 2023-09-20 11:29 | Emergency (ER) | payer OTHER ==
[~2023-09-20] VITALS: Ht 188 cm; Wt 92.8 kg
[2023-09-20 12:46] LABS: BILIRUBIN, URINE NEGATIVE (negative); BLOOD/HGB, URINE NEGATIVE (Negative); KETONE, URINE NEGATIVE (Negative); LEUK ESTERASE, URINE NEGATIVE (negative); NITRITE, URINE NEGATIVE (negative)
[2023-09-20 12:51] LABS: BACTERIA, URINE NONE SEEN /hpf (negative); CASTS, URINE NONE SEEN \\lpf; COLLECTION TYPE, URINE CLEAN CATCH; CRYSTALS, URINE NONE SEEN (0-1+); EPITHELIAL CELLS, URINE 0 /lpf (0-1+); RED BLOOD CELLS, URINE 0-1 /hpf (0-5); REFLEX CULTURE, URINE No (No); WHITE BLOOD CELLS, URINE 0-1 /HPF (0-5)
[2023-09-20 13:06] LABS: BASOPHILS 2.2 % (0-2); EOSINOPHILS 1.6 % (0-6); HEMATOCRIT 37.9 % (35.0-50.0); LYMPHOCYTES 16.5 % (24-44); MCH 32.5 (27-36); MCHC 34.3 g/dl (30-36); MCV 94.6 fl (81-99); MONOCYTES 12.2 % (0-12); NEUTROPHILS 67.5 % (39-80); PLATELET COUNT 155 K/uL (140-440); RBC 4.01 M/ul (4.3-5.7)
[2023-09-20 13:20] LABS: ALBUMIN/GLOBULIN RATIO 0.75 (1.1-2.4); ANION GAP 11.4 (7-21); BILIRUBIN, TOTAL 0.4 ng/dL (0.2-1.0); BUN/CREATININE RATIO 11.25 (6.0-28.6); CALCIUM 8.3 mg/dL (8.5-10.1); CREATININE, SERUM 0.8 mg/dL (0.70-1.30); POTASSIUM 3.4 mmol/L (3.5-5.1)
[2023-09-20 14:31] VITALS: BP 134/80
== END 2023-09-20 14:23 | disposition home or self-care (01) ==
LOC: ED 11:29
PROVIDERS: Emergency Medicine
DX: R10.11 Right upper quadrant pain (principal); F10.20 Alcohol dependence, uncomplicated; I10 Essential (primary) hypertension; Z79.899 Other long term (current) drug therapy; Z88.6 Allergy status to analgesic agent; Z87.442 Personal history of urinary calculi
CPT/HCPCS: 36415; 80053; 81001; 83690; 85025; 99284